=== PATIENT | male | born 1975 | race Caucasian/White ===

== ENCOUNTER 2017-02-10 14:53 | Inpatient (IN) | payer OTHER ==
[2017-02-10 19:42] VITALS: BMI 37.0
--- NOTE | 2017-02-10 20:16 | HP ---
CIWA Score - CIWA Score Nausea/Vomitin Muscle Tremors: 4-Moderate,w/Arms Extend Anxiety: 4-Mod. Anxious/Guarded Agitation: 5 Paroxysmal Sweats: 3 Orientation: 0-Oriented Tacttile Disturbances: 0-None Auditory Disturbances: 0-None Visual Disturbances: 0-None Headache: 0-None Present CIWA-Ar Total Score: 19 Admission ROS BHS - HPI Chief Complaint: C/O WITHDRAWAL SX'S. SEEKING DETOX TXMENT. Allergies/Adverse Reactions: Allergies Allergy/AdvReac Type Severity Reaction Status Date / Time No Known Allergies Allergy Verified 02/10/17 20:10 History of Present Illness: Y.O. MALE WITH POLYSUBSTANCE ABUSE HERE ADMITTED FOR DETOX TXMENT FROM ALCOHOL AND BENZO'S. CLIENT IS PRESENTLY ON MMTP 150 MG DAILY. REPORTS LDM TODAY PROGRAM [facility] . REPORTS LONGEST CLEAN TIME WHILE ON METHADONE. RELPASED 13 YEARS AGO. Exam Limitations: Physical Impairment (L EYE BLINDNESS) - Ebola screening Have you traveled outside of the country in the last 21 days: No Have you had contact with anyone from an Ebola affected area: No Have you been sick,other than usual withdrawal symptoms: No Do you have a fever: No - Review of Systems Constitutional: Chills, Loss of Appetite, Malaise, Night Sweats, Changes in sleep EENT: reports: Nose Congestion Respiratory: reports: Other (ASTHMA/COPD) Cardiac: reports: No Symptoms Reported GI: reports: No Symptoms Reported : reports: No Symptoms Reported Musculoskeletal: reports: Joint Pain Integumentary: reports: Sweating Endocrine: reports: No Symptoms Reported Hematology: reports: No Symptoms Reported Psychiatric: reports: Anxious Other Systems: Reviewed and Negative Patient History - Patient Medical History Hx Anemia: No Hx Asthma: Yes Hx Chronic Obstructive Pulmonary Disease (COPD): Yes Hx Cancer: No Hx Cardiac Disorders: No Hx Congestive Heart Failure: No Hx Hypertension: No Hx Hypercholesterolemia: No Hx Pacemaker: No HX Cerebrovascular Accident: No Hx Seizures: No Hx Dementia: No Hx Diabetes: No Hx Gastrointestinal Disorders: No Hx Liver Disease: No Hx Genitourinary Disorders: No Hx Sexually Transmitted Disorders: No Hx Renal Disease (ESRD): No Hx Thyroid Disease: No Hx Human Immunodeficiency Virus (HIV): No Hx Hepatitis C: No Hx Depression: Yes Hx Suicide Attempt: No Hx Bipolar Disorder: No Hx Schizophrenia: No Other Medical History: ANXIETY - Patient Surgical History Past Surgical History: Yes Hx Orthopedic Surgery: Yes (CLUB FEET REPAIR 12 SX TO BLE) Anesthesia Reaction: No - PPD History Previous Implant?: Yes Documented Results: Negative w/o proof Implanted On Prior R Admission?: No PPD to be Administered?: Yes - Smoking Cessation Smoking history: Current every day smoker Have you smoked in the past 12 months: Yes Aproximately how many cigarettes per day: 20 Hx Chewing Tobacco Use: No Initiated information on smoking cessation: Yes 'Breaking Loose' booklet given: 02/10/17 - Substance & Tx. History Hx Alcohol Use: Yes Hx Substance Use: Yes Substance Use Type: Cocaine, Heroin, Tranquilizers Hx Substance Use Treatment: Yes ([facility]) - Substances Abused XANAX Route: Oral Frequency: 3-6 times per week Amount used: 16 MG Age of first use: 18 Date of Last Use: 02/09/17 KLONOPIN Route: Oral Frequency: 3-6 times per week Amount used: 8MG Age of first use: 18 Date of Last Use: 02/09/17 COCAINE Route: Smoking Frequency: Daily Amount used: 1GM Age of first use: 14 Date of Last Use: 02/09/17 HEROIN Route: Injection Frequency: Daily Amount used: 10 BAGS Age of first use: 12 Date of Last Use: 02/09/17 MALT LIQUOR Route: Oral Frequency: Daily Amount used: 2-24 OZ Age of first use: 18 Date of Last Use: 02/09/17 Family Disease History - Family Disease History Family Disease History: Other: Mother ( MVA), Brother (DRUG ABUSE) Admission Physical Exam [facility] - Vital Signs Vital Signs: Vital Signs - 24 hr 02/10/17 19:38 Temperature 97.3 F L Pulse Rate 64 Respiratory 18 Rate Blood Pressure 112/75 - Physical General Appearance: Yes: Appropriately Dressed, Mild Distress, Sweating, Anxious HEENTM: Yes: Normocephalic, Pharynx Normal, Rhinorrhea, Other (L EYE BLINDNESS AND SCARRING) Respiratory: Yes: Chest Non-Tender, Lungs Clear, Normal Breath Sounds, No Respiratory Distress, No Accessory Muscle Use Neck: Yes: No masses,lesions,Nodules, Supple, Trachea in good position Breast: Yes: Breast Exam Deferred Cardiology: Yes: Regular Rhythm, Regular Rate, S1, S2 Abdominal: Yes: Non Tender, Soft, Protuberent Genitourinary: Yes: Within Normal Limits Back: Yes: Normal Inspection Musculoskeletal: Yes: Joint Stiffness Extremities: Yes: Normal Capillary Refill, Non-Tender, Other (BLE SX SCARS) Neurological: Yes: instantizer operator II-XII NML intact, Fully Oriented, Alert, Motor Strength 5/5 Integumentary: Yes: Cold, Clammy, Track Orr Lymphatic: Yes: Within Normal Limits - Diagnostic (1) Methadone maintenance therapy patient Current Visit: Yes Status: Chronic (2) Alcohol dependence with uncomplicated withdrawal Current Visit: Yes Status: Chronic (3) Opioid dependence with withdrawal Current Visit: Yes Status: Chronic (4) Sedative, hypnotic or anxiolytic dependence with withdrawal, uncomplicated Current Visit: Yes Status: Chronic (5) Cocaine dependence, uncomplicated Current Visit: Yes Status: Chronic (6) Asthma Current Visit: Yes Status: Chronic Qualifiers: Asthma severity: mild intermittent (7) COPD (chronic obstructive pulmonary disease) Current Visit: Yes Status: Chronic Qualifiers: COPD type: COPD with acute exacerbation Qualified Code(s): J44.1 - Chronic obstructive pulmonary disease with (acute) exacerbation (8) Nicotine dependence Current Visit: Yes Status: Chronic Qualifiers: Nicotine product type: cigarettes Substance use status: uncomplicated Qualified Code(s): F17.210 - Nicotine dependence, cigarettes, uncomplicated Cleared for Admission BHS - Detox or Rehab [facility] Level of Care: Medically Managed Detox Regimen/Protocol: Valium [facility] Breath Alcohol Content Breath Alcohol Content: 0 Urine Drug Screen - Results Urine Drug Screen Results: ALEX-Cocaine, OPI-Opiates, BZO-Benzodiazepines, MTD- Methadone
[2017-02-10] MEDS ORDERED: LOPERAMIDE HCL 2 MG CAPSULE PO PRN (20:31)
[2017-02-10] MEDS ORDERED: diazePAM 5 MG TABLET PO ONE (20:31)
[2017-02-10] MEDS ORDERED: MENTHOL/PHENOL 1 EACH UD MM PRN (20:31)
[2017-02-10] MEDS ORDERED: guaiFENesin/D-METHORPHAN HB 10 ML UNIT-DOSE CUPS PO PRN (20:31)
[2017-02-10] MEDS ORDERED: P-EPHED 60MG/TRIPROLIDI 2.5MG TABLET PO PRN (20:31)
[2017-02-10] MEDS ORDERED: MAGNESIUM CITRATE 300 ML BOTTLE PO PRN (20:31)
[2017-02-10] MEDS ORDERED: MAGNESIUM HYDROX 2400MG/30ML ORAL SUSPENSION 30 ML CUP PO PRN (20:31)
[2017-02-10] MEDS ORDERED: MAG HYDROX/AL HYDROX/SIMETH 30 ML UNIT-DOSE CUP PO PRN (20:31)
[2017-02-10] MEDS ORDERED: hydrOXYzine PAMOATE 50 MG CAPSULE (FP) PO PRN (20:31)
[2017-02-10] MEDS ORDERED: IBUPROFEN 400 MG TABLET (FP) PO PRN (20:31)
[2017-02-10] MEDS ORDERED: ALBUTEROL SO4 2.5/IPRATROPIUM 0.5 INH SOL 3 ML VIAL.NEB. NEB PRN (20:33)
[2017-02-10] MEDS: THIAMINE HCL 100 MG TABLET (FP) PO SCH (22:36)
[2017-02-10] MEDS: diphenhydrAMINE HCL 50 MG CAPSULE PO PRN (22:37)
[2017-02-10] MEDS: diazePAM 5 MG TABLET PO SCH (22:40)
[2017-02-10] MEDS: NICOTINE 21 MG/24 HOURS TOPICAL PATCH TD SCH (22:40)
[2017-02-11] MEDS: diazePAM 5 MG TABLET PO SCH ×3 (05:34→22:03)
[2017-02-11] MEDS ORDERED: METHADONE HCL 10 MG TABLET PO SCH (07:30)
[2017-02-11] MEDS ORDERED: METHADONE HCL 10 MG TABLET ONE (08:30)
[2017-02-11] MEDS ORDERED: METHADONE HCL 40 MG DISPERSABLE TABLET ONE (08:31)
[2017-02-11] MEDS: METHADONE 120 MG, METHADONE 30 MG PO SCH (09:03)
[2017-02-11] MEDS: diazePAM 5 MG TABLET PO PRN ×2 (09:04→19:53)
[2017-02-11] MEDS: NICOTINE 21 MG/24 HOURS TOPICAL PATCH TD SCH (09:04)
[2017-02-11] MEDS: PRENATAL VITAMINS W/ FOLIC ACID TABLET (FP) PO SCH (09:04)
--- NOTE | 2017-02-11 09:39 | PN ---
S CIWA - CIWA Score Nausea/Vomitin-Mild Nausea/No Vomiting Muscle Tremors: 4-Moderate,w/Arms Extend Anxiety: 4-Mod. Anxious/Guarded Agitation: 3 Paroxysmal Sweats: 3 Orientation: 0-Oriented Tacttile Disturbances: 0-None Auditory Disturbances: 0-None Visual Disturbances: 0-None Headache: 0-None Present CIWA-Ar Total Score: 15 BHS Progress Note (SOAP) Subjective: Anxiety,tremors,sweating,interrupted sleep,restless,diarrhea. Objective: 02/11/17 09:38 Vital Signs - 8 hr 02/11/17 02/11/17 02/11/17 03:23 06:06 09:30 Temperature 98.0 F 98.1 F Pulse Rate 67 96 H Respiratory 18 18 18 Rate Blood Pressure 131/85 127/83 Assessment: 02/11/17 09:38 Withdrawal sx. Plan: Continue detox
[2017-02-11 09:59] LABS: MCH 28.3 pg (25.7-33.7); MCHC 33.8 g/dl (32.0-35.9); MEAN CELL VOLUME 83.7 fl (80-96); MEAN PLT VOLUME 7.1 fl (7.5-11.1); PLATELET COUNT 192 K/MM3 (134-434); WHITE BLOOD COUNT 5.6 K/mm3 (4.0-10.0)
[2017-02-11 10:08] LABS: ALBUMIN 3.1 g/dl (3.4-5.0); ANION GAP 9 (8-16); CALCIUM 8.5 mg/dL (8.5-10.1); CO2 29 mmol/L (21-32); GLUCOSE,RANDOM 106 mg/dL (74-106)
[2017-02-11 10:13] LABS: ALK PHOS 84 U/L (45-117); BILIRUBIN,TOTAL 0.2 mg/dL (0.2-1.0); COCKROFT - GAULT 219.11; CREATININE 0.7 mg/dL (0.7-1.3); SGOT/AST 22 U/L (15-37); SGPT/ALT 35 U/L (12-78); TOT PROT 6.5 g/dl (6.4-8.2)
--- NOTE | 2017-02-11 13:48 | CONSULT ---
[facility] Psychiatric Consult - Data Date of interview: 02/11/17 Admission source: [facility] Identifying data: First admission to [facility] for this 41 y/o male seeking detox treatment for heroin,cocaine,xanax and alcohol dependence.Patient is single,a father of one,homeless,unemployed and supported on " nothing ". Substance Abuse History: - Smoking Cessation. Smoking history: Current every day smoker. Have you smoked in the past 12 months: Yes. Aproximately how many cigarettes per day: 20. Hx Chewing Tobacco Use: No. Initiated information on smoking cessation: Yes. 'Breaking Loose' booklet given: 02/10/17. - Substance & Tx. History. Hx Alcohol Use: Yes. Hx Substance Use: Yes. Substance Use Type : Cocaine, Heroin, Tranquilizers. Hx Substance Use Treatment: Yes ([facility]) . - Substances Abused. XANAX. Route: Oral. Frequency: 3-6 times per week. Amount used: 16 MG. Age of first use: 18. Date of Last Use: 02/09/17. KLONOPIN. Route: Oral. Frequency: 3-6 times per week. Amount used: 8MG. Age of first use: 18. Date of Last Use: 02/09/17. COCAINE. Route: Smoking. Frequency: Daily. Amount used: 1GM. Age of first use: 14. Date of Last Use: 02/09/17. HEROIN. Route: Injection. Frequency: Daily. Amount used: 10 BAGS. Age of first use: 12. Date of Last Use: 02/09/17. MALT LIQUOR. Route: Oral. Frequency: Daily. Amount used: 2-24 OZ. Age of first use: 18. Date of Last Use: 02/09/17. Confirmed by patient. Medical History: Bronchial asthma and COPD. Psychiatric History: No history of psychiatric hospitalizations.Brief treatment, three years ago,with bupropion 100 mg/day.Stopped seeing a private psychiatrist three years ago.Diagnosed with MDD and Anxiety Disorder.Mr Moseley denies history of suicide attempts.Currently on methadone maintenance (150 mg/day) at the [facility] in [facility]. Physical/Sexual Abuse/Trauma History: No history of sexual abuse. Additional Comment: Urine Drug Screen Results: ALEX-Cocaine, OPI-Opiates, BZO- Benzodiazepines, MTD-Methadone.Noted. Mental Status Exam - Mental Status Exam Alert and Oriented to: Time, Place, Person Cognitive Function: Good Patient Appearance: Well Groomed (tattoos all over neck,torso and forearms) Mood: Hopeful, Euthymic Affect: Appropriate, Normal Range Patient Behavior: Fatigued, Cooperative Speech Pattern: Clear Voice Loudness: Normal Thought Process: Goal Oriented Thought Disorder: Not Present Hallucinations: Denies Suicidal Ideation: Denies Homicidal Ideation: Denies Insight/Judgement: Poor Sleep: Fair Appetite: Good Muscle strength/Tone: Normal Gait/Station: Normal Psychiatric Findings - Problem List ([place] 1, 2,3) (1) Alcohol dependence with uncomplicated withdrawal Current Visit: Yes Status: Acute (2) Cocaine dependence, uncomplicated Current Visit: Yes Status: Acute (3) Nicotine dependence Current Visit: Yes Status: Acute Qualifiers: Nicotine product type: cigarettes Substance use status: uncomplicated Qualified Code(s): F17.210 - Nicotine dependence, cigarettes, uncomplicated (4) Opioid dependence with withdrawal Current Visit: Yes Status: Acute (5) Sedative, hypnotic or anxiolytic dependence with withdrawal, uncomplicated Current Visit: Yes Status: Acute (6) Opioid dependence on agonist therapy Current Visit: Yes Status: Acute (7) Substance induced mood disorder Current Visit: Yes Status: Acute (8) Anxiety disorder Current Visit: Yes Status: Acute (9) Asthma Current Visit: Yes Status: Chronic Qualifiers: Asthma severity: mild intermittent (10) COPD (chronic obstructive pulmonary disease) Current Visit: Yes Status: Chronic Qualifiers: COPD type: COPD with acute exacerbation Qualified Code(s): J44.1 - Chronic obstructive pulmonary disease with (acute) exacerbation - Initial Treatment Plan Initial Treatment Plan: Psychoeducation.Detoxification.medication : wellbutrin 100 mg po daily.Patient made aware of potential for seizures.He agrees with this careplan.Observation.
[2017-02-11 13:53] LABS: URINE APPEARANCE CLEAR; URINE BILIRUBIN NEGATIVE (NEGATIVE); URINE COLOR LTYELLOW; URINE GLUCOSE (UA) NEGATIVE (NEGATIVE); URINE KETONE NEGATIVE (NEGATIVE); URINE NITRITE NEGATIVE (NEGATIVE); URINE PROTEIN NEGATIVE (NEGATIVE); URINE UROBILINOGEN NEGATIVE E.U./dl (0.2-1.0)
[2017-02-11 14:00] LABS: URINE BLOOD 1+ (NEGATIVE); URINE LEUK ESTERASE TRACE (NEGATIVE)
[2017-02-11 14:05] LABS: CALCIUM OXALATE CRYSTALS MODERATE /hpf (NONE SEEN); URINE MUCUS RARE; URINE RBC 3 /hpf (0-3); URINE WBC <1 /hpf (3-5)
[2017-02-11] MEDS: THIAMINE HCL 100 MG TABLET (FP) PO SCH (22:03)
[2017-02-11] MEDS: diphenhydrAMINE HCL 50 MG CAPSULE PO PRN (22:03)
--- NOTE | 2017-02-11 23:07 | EKG ---
Test Reason : Blood Pressure : / mmHG Vent. Rate : 059 BPM Atrial Rate : 059 BPM P-R Int : 140 ms QRS Dur : 106 ms QT Int : 434 ms P-R-T Axes : 016 052 051 degrees QTc Int : 429 ms SINUS BRADYCARDIA INCOMPLETE RIGHT BUNDLE BRANCH BLOCK BORDERLINE ECG NO PREVIOUS ECGS AVAILABLE Confirmed by CASSANDRA PANDYA MD ([id number]) on 02/11/2017 11:07:02 PM Referred By: Simon Macedo Confirmed By:CASSANDRA PANDYA MD
[2017-02-12] MEDS ORDERED: METHADONE HCL 10 MG TABLET ONE (04:42)
[2017-02-12] MEDS ORDERED: METHADONE HCL 40 MG DISPERSABLE TABLET ONE (04:43)
[2017-02-12] MEDS: METHADONE 120 MG, METHADONE 30 MG PO SCH (05:40)
[2017-02-12] MEDS: diazePAM 5 MG TABLET PO PRN ×3 (05:40→18:27)
[2017-02-12] MEDS: PRENATAL VITAMINS W/ FOLIC ACID TABLET (FP) PO SCH (10:04)
[2017-02-12] MEDS: diazePAM 5 MG TABLET PO SCH ×2 (10:04→22:51)
[2017-02-12] MEDS: buPROPion HCL 100 MG TABLET PO SCH (10:04)
[2017-02-12] MEDS: NICOTINE 21 MG/24 HOURS TOPICAL PATCH TD SCH (10:05)
[2017-02-12] MEDS: ACETAMINOPHEN 325 MG TABLET (FP) PO PRN (10:06)
--- NOTE | 2017-02-12 12:05 | PN ---
S CIWA - CIWA Score Nausea/Vomitin-No Nausea/No Vomiting Muscle Tremors: 3 Anxiety: 4-Mod. Anxious/Guarded Agitation: 3 Paroxysmal Sweats: 2 Orientation: 0-Oriented Tacttile Disturbances: 0-None Auditory Disturbances: 0-None Visual Disturbances: 0-None Headache: 0-None Present CIWA-Ar Total Score: 12 BHS Progress Note (SOAP) Subjective: Anxiety,tremors,sweating,interrupted sleep,restless. Objective: 02/12/17 12:02 Vital Signs - 8 hr 02/12/17 02/12/17 06:28 09:07 Temperature 96.8 F L 96.8 F L Pulse Rate 59 L 57 L Respiratory 16 18 Rate Blood Pressure 117/73 124/75 Laboratory Tests 02/10/17 02/11/17 02/11/17 07:00 07:00 07:00 WBC 5.6 RBC 4.65 Hgb 13.1 Hct 38.9 MCV 83.7 MCHC 33.8 RDW 14.0 Plt Count 192 MPV 7.1 L Sodium 143 Potassium 3.5 Chloride 105 Carbon Dioxide 29 Anion Gap 9 BUN 13 Creatinine 0.7 Creat Clearance w eGFR > 60 Random Glucose 106 Calcium 8.5 Total Bilirubin 0.2 AST 22 ALT 35 Alkaline Phosphatase 84 Total Protein 6.5 Albumin 3.1 L Urine Color Urine Appearance Urine pH Ur Specific [place] Urine Protein Urine Glucose (UA) Urine Ketones Urine Blood Urine Nitrite Urine Bilirubin Urine Urobilinogen Ur Leukocyte Esterase Urine RBC Urine WBC Calcium Oxalate Crystal Urine Mucus RPR Titer Hepatitis C Antibody >11.0 H 02/11/17 02/11/17 07:00 10:05 WBC RBC Hgb Hct MCV MCHC RDW Plt Count MPV Sodium Potassium Chloride Carbon Dioxide Anion Gap BUN Creatinine Creat Clearance w eGFR Random Glucose Calcium Total Bilirubin AST ALT Alkaline Phosphatase Total Protein Albumin Urine Color Ltyellow Urine Appearance Clear Urine pH 6.0 Ur Specific [place] 1.019 Urine Protein Negative Urine Glucose (UA) Negative Urine Ketones Negative Urine Blood 1+ H Urine Nitrite Negative Urine Bilirubin Negative Urine Urobilinogen Negative Ur Leukocyte Esterase Trace H Urine RBC 3 Urine WBC <1 Calcium Oxalate Crystal Moderate Urine Mucus Rare RPR Titer Nonreactive Hepatitis C Antibody labs noted Assessment: 02/12/17 12:04 Withdrawal sx. Plan: Continue detox
[2017-02-12] MEDS: NICOTINE POLACRILEX 2 MG GUM BC PRN ×2 (14:15→18:28)
[2017-02-12] MEDS: THIAMINE HCL 100 MG TABLET (FP) PO SCH (22:00)
[2017-02-12] MEDS: diphenhydrAMINE HCL 50 MG CAPSULE PO PRN (22:00)
[2017-02-13] MEDS ORDERED: METHADONE HCL 10 MG TABLET ONE (03:33)
[2017-02-13] MEDS ORDERED: METHADONE HCL 40 MG DISPERSABLE TABLET ONE (03:33)
[2017-02-13] MEDS: diazePAM 5 MG TABLET PO PRN ×3 (05:44→18:29)
[2017-02-13] MEDS: METHADONE 120 MG, METHADONE 30 MG PO SCH (05:44)
[2017-02-13] MEDS: PRENATAL VITAMINS W/ FOLIC ACID TABLET (FP) PO SCH (10:06)
[2017-02-13] MEDS: buPROPion HCL 100 MG TABLET PO SCH (10:06)
[2017-02-13] MEDS: diazePAM 5 MG TABLET PO SCH ×2 (10:06→22:10)
[2017-02-13] MEDS: ACETAMINOPHEN 325 MG TABLET (FP) PO PRN (10:06)
[2017-02-13] MEDS: NICOTINE 21 MG/24 HOURS TOPICAL PATCH TD SCH (10:06)
[2017-02-13] MEDS ORDERED: IBUPROFEN 400 MG TABLET (FP) PO ONE (11:07)
--- NOTE | 2017-02-13 11:10 | PN ---
BHS Progress Note (SOAP) Subjective: Sweating,interrupted sleep,restless Objective: 02/13/17 11:08 Vital Signs - 8 hr 02/13/17 02/13/17 02/13/17 03:18 06:14 09:20 Temperature 97.4 F L 98.0 F Pulse Rate 57 L 59 L Respiratory 18 18 18 Rate Blood Pressure 130/82 119/73 Laboratory Last Values WBC 5.6 K/mm3 (4.0-10.0) 02/11/17 07:00 RBC 4.65 M/mm3 (4.00-5.60) 02/11/17 07:00 Hgb 13.1 GM/dL (11.7-16.9) 02/11/17 07:00 Hct 38.9 % (35.4-49) 02/11/17 07:00 MCV 83.7 fl (80-96) 02/11/17 07:00 MCHC 33.8 g/dl (32.0-35.9) 02/11/17 07:00 RDW 14.0 % (11.9-15.9) 02/11/17 07:00 Plt Count 192 K/MM3 (134-434) 02/11/17 07:00 MPV 7.1 fl (7.5-11.1) L 02/11/17 07:00 Sodium 143 mmol/L (136-145) 02/11/17 07:00 Potassium 3.5 mmol/L (3.5-5.1) 02/11/17 07:00 Chloride 105 mmol/L (98-107) 02/11/17 07:00 Carbon Dioxide 29 mmol/L (21-32) 02/11/17 07:00 Anion Gap 9 (8-16) 02/11/17 07:00 BUN 13 mg/dL (7-18) 02/11/17 07:00 Creatinine 0.7 mg/dL (0.7-1.3) 02/11/17 07:00 Creat Clearance w eGFR > 60 (>60) 02/11/17 07:00 Random Glucose 106 mg/dL (74-106) 02/11/17 07:00 Calcium 8.5 mg/dL (8.5-10.1) 02/11/17 07:00 Total Bilirubin 0.2 mg/dL (0.2-1.0) 02/11/17 07:00 AST 22 U/L (15-37) 02/11/17 07:00 ALT 35 U/L (12-78) 02/11/17 07:00 Alkaline Phosphatase 84 U/L (45-117) 02/11/17 07:00 Total Protein 6.5 g/dl (6.4-8.2) 02/11/17 07:00 Albumin 3.1 g/dl (3.4-5.0) L 02/11/17 07:00 Urine Color Ltyellow 02/11/17 10:05 Urine Appearance Clear 02/11/17 10:05 Urine pH 6.0 (5.0-8.0) 02/11/17 10:05 Ur Specific [place] 1.019 (1.001-1.035) 02/11/17 10:05 Urine Protein Negative (NEGATIVE) 02/11/17 10:05 Urine Glucose (UA) Negative (NEGATIVE) 02/11/17 10:05 Urine Ketones Negative (NEGATIVE) 02/11/17 10:05 Urine Blood 1+ (NEGATIVE) H 02/11/17 10:05 Urine Nitrite Negative (NEGATIVE) 02/11/17 10:05 Urine Bilirubin Negative (NEGATIVE) 02/11/17 10:05 Urine Urobilinogen Negative E.U./dl (0.2-1.0) 02/11/17 10:05 Ur Leukocyte Esterase Trace (NEGATIVE) H 02/11/17 10:05 Urine RBC 3 /hpf (0-3) 02/11/17 10:05 Urine WBC <1 /hpf (3-5) 02/11/17 10:05 Calcium Oxalate Crystal Moderate /hpf (NONE SEEN) 02/11/17 10:05 Urine Mucus Rare 02/11/17 10:05 RPR Titer Nonreactive (NONREACTIVE) 02/11/17 07:00 Hepatitis C Antibody >11.0 s/co ratio (0.0-0.9) H 02/10/17 07:00 labs noted,hep c result discussed with pt. Assessment: 02/13/17 11:10 Withdrawal sx. Plan: Continue detox
[2017-02-13] MEDS: NICOTINE POLACRILEX 2 MG GUM BC PRN ×2 (12:41→18:32)
[2017-02-13] MEDS: IBUPROFEN 400 MG TABLET (FP) PO PRN (18:28)
[2017-02-13] MEDS: THIAMINE HCL 100 MG TABLET (FP) PO SCH (22:09)
[2017-02-13] MEDS: diphenhydrAMINE HCL 50 MG CAPSULE PO PRN (22:10)
[2017-02-14] MEDS ORDERED: METHADONE HCL 10 MG TABLET ONE (03:48)
[2017-02-14] MEDS ORDERED: METHADONE HCL 40 MG DISPERSABLE TABLET ONE (03:49)
[2017-02-14] MEDS: METHADONE 120 MG, METHADONE 30 MG PO SCH (05:27)
[2017-02-14] MEDS ORDERED: diazePAM 5 MG TABLET PO SCH (10:00)
[2017-02-14] MEDS: PRENATAL VITAMINS W/ FOLIC ACID TABLET (FP) PO SCH (10:07)
[2017-02-14] MEDS: buPROPion HCL 100 MG TABLET PO SCH (10:08)
[2017-02-14] MEDS: NICOTINE 21 MG/24 HOURS TOPICAL PATCH TD SCH (10:08)
[2017-02-14] MEDS: IBUPROFEN 400 MG TABLET (FP) PO PRN (10:10)
[2017-02-14 10:27] VITALS: BP 117/78; PULSE 57; TEMP 97.4
--- NOTE | 2017-02-14 11:14 | DS ---
[facility] Detox Discharge Summary Admission Date: 02/10/17 Discharge Date: 02/14/17 - History Present History: Alcohol Dependence, Cocaine Dependence, MMTP Additional Comments: DETOX COMPLETED. ALERT O X 3. NAD. Pertinent Past History: ASTHMA COPD - Physical Exam Results Vital Signs: Vital Signs Temperature 97.4 F L 02/14/17 10:27 Pulse Rate 57 L 02/14/17 10:27 Respiratory Rate 18 02/14/17 10:27 Blood Pressure 117/78 02/14/17 10:27 O2 Sat by Pulse Oximetry (%) Pertinent Admission Physical Exam Findings: WITHDRAWAL SX - Treatment Hospital Course: Detox Protocol Followed, Detoxed Safely, Responded well, Discharged Condition Good, Rehab Referral Accepted Patient has Accepted a Rehab Referral to: [facility] - Medication Discharge Medications: Ambulatory Orders Albuterol Sulfate Inhaler - [Ventolin Hfa Inhaler -] 1 - 2 inh PO Q4H 02/10/17 Methadone [Dolophine -] 150 mg PO DAILY 02/10/17 - Diagnosis (1) Alcohol dependence with uncomplicated withdrawal Current Visit: Yes Status: Acute (2) Cocaine dependence, uncomplicated Current Visit: Yes Status: Acute (3) Nicotine dependence Current Visit: Yes Status: Acute Qualifiers: Nicotine product type: cigarettes Substance use status: uncomplicated Qualified Code(s): F17.210 - Nicotine dependence, cigarettes, uncomplicated (4) Sedative, hypnotic or anxiolytic dependence with withdrawal, uncomplicated Current Visit: Yes Status: Acute (5) Asthma Current Visit: Yes Status: Chronic Qualifiers: Asthma severity: mild intermittent (6) COPD (chronic obstructive pulmonary disease) Current Visit: Yes Status: Chronic Qualifiers: COPD type: COPD with acute exacerbation Qualified Code(s): J44.1 - Chronic obstructive pulmonary disease with (acute) exacerbation (7) Methadone maintenance therapy patient Current Visit: Yes Status: Chronic - AMA Did Patient Leave Against Medical Advice: No
== END 2017-02-14 12:20 | disposition other institution (70) | DRG 773 ==
LOC: YASAS 14:53 → Y3N 21:16
PROVIDERS: ADMIT Internal Medicine; ATTEND Internal Medicine
PROC: HZ2ZZZZ Detoxification Services for Substance Abuse Treatment (ICD-10-PCS; principal; 2017-02-14)
DX: F11.23 Opioid dependence with withdrawal (principal); F13.230 Sedative, hypnotic or anxiolytic dependence with withdrawal, uncomplicated; F10.230 Alcohol dependence with withdrawal, uncomplicated; F17.210 Nicotine dependence, cigarettes, uncomplicated; J45.909 Unspecified asthma, uncomplicated; J44.9 Chronic obstructive pulmonary disease, unspecified; F41.9 Anxiety disorder, unspecified; Z59.0 Homelessness
CPT/HCPCS: 36415; 80053; 81003; 81015; 85027; 86593; 87522; 93005; 93010

== ENCOUNTER 2017-02-14 12:27 | Inpatient (IN) | payer OTHER ==
[2017-02-14] MEDS ORDERED: P-EPHED 60MG/TRIPROLIDI 2.5MG TABLET PO PRN (13:35)
[2017-02-14] MEDS ORDERED: guaiFENesin/D-METHORPHAN HB 10 ML UNIT-DOSE CUPS PO PRN (13:35)
[2017-02-14] MEDS ORDERED: hydrOXYzine PAMOATE 50 MG CAPSULE (FP) PO PRN (13:35)
[2017-02-14] MEDS ORDERED: MENTHOL/PHENOL 1 EACH UD MM PRN (13:35)
[2017-02-14] MEDS ORDERED: MAG HYDROX/AL HYDROX/SIMETH 30 ML UNIT-DOSE CUP PO PRN (13:35)
[2017-02-14] MEDS ORDERED: LOPERAMIDE HCL 2 MG CAPSULE PO PRN (13:35)
[2017-02-14] MEDS ORDERED: ACETAMINOPHEN 325 MG TABLET (FP) PO PRN (13:35)
[2017-02-14] MEDS ORDERED: MAGNESIUM HYDROX 2400MG/30ML ORAL SUSPENSION 30 ML CUP PO PRN (13:35)
[2017-02-14] MEDS ORDERED: MAGNESIUM CITRATE 300 ML BOTTLE PO PRN (13:35)
--- NOTE | 2017-02-14 13:39 | HP ---
[facility] Re[facility] Assess/Revision - Admission History Ad[facility]hab [facility] Date of Admission to Rehab: 02/14/17 - Findings Detox History & Physical reviewed: Yes Concur with findings: Yes Comments/Additional Findings: FOR REHAB PROTOCOL
--- NOTE | 2017-02-14 14:20 | HP ---
Psychiatrist Admission - Data Date of interview: 02/14/17 Admission source: 3N Identifying data: This is the first 5N inpatient rehabilitation admsision for this 41 year old male who is single,a father of one, homeless, unemployed. 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 p.o. daily, smokes cigarettes 1PPD. Psychiatric History: Patient reports history of anxiety and depression, was under the care of private psychiatrist 3 years ago, stopped seeing him, reports was treated with wellbutrin 100 mg daily, seen by Joaquin Eugene and restarted his medication. Physical/Sexual Abuse/Trauma History: Denies history of sexual, physical and verbal buse. Allergies/Adverse Reactions: Allergies Allergy/AdvReac Type Severity Reaction Status Date / Time No Known Allergies Allergy Verified 02/14/17 13:39 Date of last physical exam: 02/10/17 Concur with the findings of this exam: Yes - Substance Abuse/Tx History Hx Alcohol Use: Yes Hx Substance Use: Yes Substance Use Type: Alcohol (daily use beer), Cocaine (daily use), Heroin (10 bags injecting), Tranquilizers (xanax up to 6 mg , klonopin up to 4 mg daily) Hx Substance Use Treatment: Yes - Admission Criteria Previous failed treatment: Yes Poor recovery environment: Yes Comorbidities: Yes Lacks judgement: Yes Mental Status Exam - Mental Status Exam Alert and Oriented to: Time, Place, Person Cognitive Function: Grossly Intact Patient Appearance: Well Groomed Mood: Sad, Anxious Affect: Appropriate, Mood Congruent Patient Behavior: Appropriate, Cooperative Speech Pattern: Clear, Appropriate Voice Loudness: Normal Thought Process: Intact, Goal Oriented Thought Disorder: Not Present Hallucinations: Denies Suicidal Ideation: Denies Homicidal Ideation: Denies Insight/Judgement: Fair Sleep: Fair Appetite: Fair Muscle strength/Tone: Normal Gait/Station: Normal Psychiatric Findings - Problem List ([place] 1, 2,3) (1) Cocaine dependence, uncomplicated Current Visit: No Status: Acute (2) Nicotine dependence Current Visit: No Status: Acute Qualifiers: Nicotine product type: cigarettes Substance use status: uncomplicated Qualified Code(s): F17.210 - Nicotine dependence, cigarettes, uncomplicated (3) Opioid dependence on agonist therapy Current Visit: No Status: Acute (4) TUNG (generalized anxiety disorder) Current Visit: Yes Status: Acute (5) Alcohol dependence Current Visit: Yes Status: Acute (6) Sedative hypnotic or anxiolytic dependence Current Visit: Yes Status: Acute (7) Psychoactive substance-induced mood disorder Current Visit: Yes Status: Acute - Initial Treatment Plan Initial Treatment Plan: to continue Wellbutrin 100 mg po am start Buspar 5 mg po tid(side-effects benefits discussed), contineu to monitor progress.
[2017-02-14] MEDS: NICOTINE 21 MG/24 HOURS TOPICAL PATCH TD SCH (15:15)
[2017-02-14] MEDS: NICOTINE POLACRILEX 2 MG GUM BUC PRN (18:07)
[2017-02-14] MEDS: IBUPROFEN 400 MG TABLET (FP) PO PRN (21:56)
[2017-02-14] MEDS: THIAMINE HCL 100 MG TABLET (FP) PO SCH (21:56)
[2017-02-14] MEDS: busPIRone HCL 5 MG TABLET PO SCH (21:56)
[2017-02-15] MEDS ORDERED: METHADONE HCL 10 MG TABLET ONE (04:27)
[2017-02-15] MEDS ORDERED: METHADONE HCL 40 MG DISPERSABLE TABLET ONE (04:28)
[2017-02-15] MEDS ORDERED: METHADONE HCL 40 MG DISPERSABLE TABLET PO SCH (06:00)
[2017-02-15] MEDS: METHADONE 120 MG, METHADONE 30 MG PO SCH (06:30)
[2017-02-15] MEDS: busPIRone HCL 5 MG TABLET PO SCH ×3 (06:30→22:00)
[2017-02-15] MEDS: ALBUTEROL SO4 6.7 GM HFA INHALER IH PRN (08:52)
[2017-02-15] MEDS: NICOTINE 21 MG/24 HOURS TOPICAL PATCH TD SCH (10:40)
[2017-02-15] MEDS: PRENATAL VITAMINS W/ FOLIC ACID TABLET (FP) PO SCH (10:40)
[2017-02-15] MEDS: buPROPion HCL 100 MG TABLET PO SCH (10:40)
[2017-02-15] MEDS: IBUPROFEN 400 MG TABLET (FP) PO PRN ×2 (10:42→22:01)
[2017-02-15] MEDS: NICOTINE POLACRILEX 2 MG GUM BUC PRN (17:33)
[2017-02-15] MEDS: THIAMINE HCL 100 MG TABLET (FP) PO SCH (22:00)
[2017-02-15] MEDS: diphenhydrAMINE HCL 50 MG CAPSULE PO PRN (22:00)
[2017-02-16] MEDS ORDERED: METHADONE HCL 40 MG DISPERSABLE TABLET ONE (03:49)
[2017-02-16] MEDS ORDERED: METHADONE HCL 10 MG TABLET ONE (03:49)
[2017-02-16] MEDS: busPIRone HCL 5 MG TABLET PO SCH ×3 (06:20→21:50)
[2017-02-16] MEDS: METHADONE 120 MG, METHADONE 30 MG PO SCH (06:20)
[2017-02-16] MEDS: NICOTINE POLACRILEX 2 MG GUM BUC PRN ×2 (06:21→13:48)
[2017-02-16] MEDS: PRENATAL VITAMINS W/ FOLIC ACID TABLET (FP) PO SCH (10:42)
[2017-02-16] MEDS: IBUPROFEN 400 MG TABLET (FP) PO PRN (10:42)
[2017-02-16] MEDS: buPROPion HCL 100 MG TABLET PO SCH (10:42)
[2017-02-16] MEDS: NICOTINE 21 MG/24 HOURS TOPICAL PATCH TD SCH (10:43)
[2017-02-16] MEDS: THIAMINE HCL 100 MG TABLET (FP) PO SCH (21:50)
[2017-02-16] MEDS: diphenhydrAMINE HCL 50 MG CAPSULE PO PRN (21:50)
[2017-02-17] MEDS ORDERED: METHADONE HCL 10 MG TABLET ONE (03:26)
[2017-02-17] MEDS ORDERED: METHADONE HCL 40 MG DISPERSABLE TABLET ONE (03:27)
[2017-02-17] MEDS: METHADONE 120 MG, METHADONE 30 MG PO SCH (06:00)
[2017-02-17] MEDS: busPIRone HCL 5 MG TABLET PO SCH ×3 (06:00→21:57)
[2017-02-17] MEDS: IBUPROFEN 400 MG TABLET (FP) PO PRN (10:51)
[2017-02-17] MEDS: NICOTINE 21 MG/24 HOURS TOPICAL PATCH TD SCH (10:52)
[2017-02-17] MEDS: buPROPion HCL 100 MG TABLET PO SCH (10:52)
[2017-02-17] MEDS: PRENATAL VITAMINS W/ FOLIC ACID TABLET (FP) PO SCH (10:52)
[2017-02-17] MEDS: NICOTINE POLACRILEX 2 MG GUM BUC PRN (14:04)
[2017-02-17] MEDS: THIAMINE HCL 100 MG TABLET (FP) PO SCH (21:57)
[2017-02-18] MEDS ORDERED: METHADONE HCL 10 MG TABLET ONE (03:17)
[2017-02-18] MEDS ORDERED: METHADONE HCL 40 MG DISPERSABLE TABLET ONE (03:18)
[2017-02-18] MEDS: busPIRone HCL 5 MG TABLET PO SCH ×3 (06:15→21:56)
[2017-02-18] MEDS: METHADONE 120 MG, METHADONE 30 MG PO SCH (06:15)
[2017-02-18] MEDS: NICOTINE POLACRILEX 2 MG GUM BUC PRN ×2 (08:45→14:14)
[2017-02-18] MEDS: PRENATAL VITAMINS W/ FOLIC ACID TABLET (FP) PO SCH (10:33)
[2017-02-18] MEDS: buPROPion HCL 100 MG TABLET PO SCH (10:33)
[2017-02-18] MEDS: IBUPROFEN 400 MG TABLET (FP) PO PRN ×2 (10:34→21:57)
[2017-02-18] MEDS: NICOTINE 21 MG/24 HOURS TOPICAL PATCH TD SCH (10:34)
[2017-02-18] MEDS: THIAMINE HCL 100 MG TABLET (FP) PO SCH (21:56)
[2017-02-18] MEDS: diphenhydrAMINE HCL 50 MG CAPSULE PO PRN (21:56)
[2017-02-19] MEDS ORDERED: METHADONE HCL 10 MG TABLET ONE (03:30)
[2017-02-19] MEDS ORDERED: METHADONE HCL 40 MG DISPERSABLE TABLET ONE (03:31)
[2017-02-19] MEDS: METHADONE 120 MG, METHADONE 30 MG PO SCH (06:16)
[2017-02-19] MEDS: busPIRone HCL 5 MG TABLET PO SCH ×3 (06:16→22:03)
[2017-02-19] MEDS: NICOTINE POLACRILEX 2 MG GUM BUC PRN (08:24)
[2017-02-19] MEDS: PRENATAL VITAMINS W/ FOLIC ACID TABLET (FP) PO SCH (10:34)
[2017-02-19] MEDS: buPROPion HCL 100 MG TABLET PO SCH (10:34)
[2017-02-19] MEDS: NICOTINE 21 MG/24 HOURS TOPICAL PATCH TD SCH (10:34)
[2017-02-19] MEDS: IBUPROFEN 400 MG TABLET (FP) PO PRN (10:35)
[2017-02-19] MEDS: THIAMINE HCL 100 MG TABLET (FP) PO SCH (22:03)
[2017-02-19] MEDS: diphenhydrAMINE HCL 50 MG CAPSULE PO PRN (22:03)
[2017-02-20] MEDS ORDERED: METHADONE HCL 40 MG DISPERSABLE TABLET ONE (03:29)
[2017-02-20] MEDS ORDERED: METHADONE HCL 10 MG TABLET ONE (03:29)
[2017-02-20] MEDS: METHADONE 120 MG, METHADONE 30 MG PO SCH (06:13)
[2017-02-20] MEDS: busPIRone HCL 5 MG TABLET PO SCH ×3 (06:13→21:44)
[2017-02-20] MEDS: ALBUTEROL SO4 6.7 GM HFA INHALER IH PRN (08:24)
[2017-02-20] MEDS: NICOTINE POLACRILEX 2 MG GUM BUC PRN ×2 (08:25→14:09)
[2017-02-20] MEDS: PRENATAL VITAMINS W/ FOLIC ACID TABLET (FP) PO SCH (10:57)
[2017-02-20] MEDS: IBUPROFEN 400 MG TABLET (FP) PO PRN (10:57)
[2017-02-20] MEDS: NICOTINE 21 MG/24 HOURS TOPICAL PATCH TD SCH (10:57)
[2017-02-20] MEDS: buPROPion HCL 100 MG TABLET PO SCH (10:57)
[2017-02-20] MEDS: THIAMINE HCL 100 MG TABLET (FP) PO SCH (21:44)
[2017-02-20] MEDS: diphenhydrAMINE HCL 50 MG CAPSULE PO PRN (21:44)
[2017-02-21] MEDS ORDERED: METHADONE HCL 40 MG DISPERSABLE TABLET ONE (05:49)
[2017-02-21] MEDS ORDERED: METHADONE HCL 10 MG TABLET ONE (05:49)
[2017-02-21] MEDS: METHADONE 120 MG, METHADONE 30 MG PO SCH (06:02)
[2017-02-21] MEDS: busPIRone HCL 5 MG TABLET PO SCH ×3 (06:03→22:02)
[2017-02-21] MEDS: NICOTINE 21 MG/24 HOURS TOPICAL PATCH TD SCH (10:44)
[2017-02-21] MEDS: IBUPROFEN 400 MG TABLET (FP) PO PRN (10:44)
[2017-02-21] MEDS: PRENATAL VITAMINS W/ FOLIC ACID TABLET (FP) PO SCH (10:44)
[2017-02-21] MEDS: buPROPion HCL 100 MG TABLET PO SCH (10:44)
[2017-02-21] MEDS: NICOTINE POLACRILEX 2 MG GUM BUC PRN (14:20)
[2017-02-21] MEDS: THIAMINE HCL 100 MG TABLET (FP) PO SCH (22:02)
[2017-02-21] MEDS: diphenhydrAMINE HCL 50 MG CAPSULE PO PRN (22:02)
[2017-02-22] MEDS ORDERED: METHADONE HCL 10 MG TABLET ONE (03:24)
[2017-02-22] MEDS ORDERED: METHADONE HCL 40 MG DISPERSABLE TABLET ONE (03:25)
[2017-02-22] MEDS: METHADONE 120 MG, METHADONE 30 MG PO SCH (06:32)
[2017-02-22] MEDS: busPIRone HCL 5 MG TABLET PO SCH ×3 (06:32→21:47)
[2017-02-22] MEDS: PRENATAL VITAMINS W/ FOLIC ACID TABLET (FP) PO SCH (10:51)
[2017-02-22] MEDS: buPROPion HCL 100 MG TABLET PO SCH (10:51)
[2017-02-22] MEDS: NICOTINE 21 MG/24 HOURS TOPICAL PATCH TD SCH (10:51)
[2017-02-22] MEDS: ALBUTEROL SO4 6.7 GM HFA INHALER IH PRN (10:54)
[2017-02-22] MEDS: NICOTINE POLACRILEX 2 MG GUM BUC PRN (14:04)
[2017-02-22] MEDS: THIAMINE HCL 100 MG TABLET (FP) PO SCH (21:47)
[2017-02-22] MEDS: IBUPROFEN 400 MG TABLET (FP) PO PRN (21:48)
[2017-02-22] MEDS: diphenhydrAMINE HCL 50 MG CAPSULE PO PRN (21:48)
[2017-02-23] MEDS ORDERED: METHADONE HCL 10 MG TABLET ONE (03:19)
[2017-02-23] MEDS ORDERED: METHADONE HCL 40 MG DISPERSABLE TABLET ONE (03:20)
[2017-02-23] MEDS: busPIRone HCL 5 MG TABLET PO SCH ×3 (06:21→22:00)
[2017-02-23] MEDS: METHADONE 120 MG, METHADONE 30 MG PO SCH (06:21)
[2017-02-23] MEDS: NICOTINE 21 MG/24 HOURS TOPICAL PATCH TD SCH (10:47)
[2017-02-23] MEDS: buPROPion HCL 100 MG TABLET PO SCH (10:47)
[2017-02-23] MEDS: PRENATAL VITAMINS W/ FOLIC ACID TABLET (FP) PO SCH (10:47)
[2017-02-23] MEDS: NICOTINE POLACRILEX 2 MG GUM BUC PRN (14:10)
[2017-02-23] MEDS: ALBUTEROL SO4 6.7 GM HFA INHALER IH PRN (21:48)
[2017-02-23] MEDS: THIAMINE HCL 100 MG TABLET (FP) PO SCH (21:49)
[2017-02-24] MEDS ORDERED: METHADONE HCL 40 MG DISPERSABLE TABLET ONE (05:04)
[2017-02-24] MEDS ORDERED: METHADONE HCL 10 MG TABLET ONE (05:04)
[2017-02-24] MEDS: busPIRone HCL 5 MG TABLET PO SCH ×3 (06:11→22:14)
[2017-02-24] MEDS: METHADONE 120 MG, METHADONE 30 MG PO SCH (06:11)
[2017-02-24] MEDS: NICOTINE POLACRILEX 2 MG GUM BUC PRN (08:37)
[2017-02-24] MEDS: NICOTINE 21 MG/24 HOURS TOPICAL PATCH TD SCH (11:06)
[2017-02-24] MEDS: buPROPion HCL 100 MG TABLET PO SCH (11:06)
[2017-02-24] MEDS: PRENATAL VITAMINS W/ FOLIC ACID TABLET (FP) PO SCH (11:06)
[2017-02-24] MEDS: ALBUTEROL SO4 6.7 GM HFA INHALER IH PRN (13:51)
[2017-02-24] MEDS: THIAMINE HCL 100 MG TABLET (FP) PO SCH (22:14)
[2017-02-25] MEDS ORDERED: METHADONE HCL 40 MG DISPERSABLE TABLET ONE (03:17)
[2017-02-25] MEDS ORDERED: METHADONE HCL 10 MG TABLET ONE (03:17)
[2017-02-25] MEDS: busPIRone HCL 5 MG TABLET PO SCH ×3 (06:13→21:07)
[2017-02-25] MEDS: METHADONE 120 MG, METHADONE 30 MG PO SCH (06:13)
[2017-02-25] MEDS: IBUPROFEN 400 MG TABLET (FP) PO PRN ×2 (08:25→14:11)
[2017-02-25] MEDS: NICOTINE 21 MG/24 HOURS TOPICAL PATCH TD SCH (10:40)
[2017-02-25] MEDS: buPROPion HCL 100 MG TABLET PO SCH (10:40)
[2017-02-25] MEDS: PRENATAL VITAMINS W/ FOLIC ACID TABLET (FP) PO SCH (10:40)
[2017-02-25] MEDS: ALBUTEROL SO4 6.7 GM HFA INHALER IH PRN (14:12)
[2017-02-25] MEDS: THIAMINE HCL 100 MG TABLET (FP) PO SCH (21:07)
[2017-02-26] MEDS ORDERED: METHADONE HCL 10 MG TABLET ONE (03:30)
[2017-02-26] MEDS ORDERED: METHADONE HCL 40 MG DISPERSABLE TABLET ONE (03:30)
[2017-02-26] MEDS: METHADONE 120 MG, METHADONE 30 MG PO SCH (06:15)
[2017-02-26] MEDS: busPIRone HCL 5 MG TABLET PO SCH (06:16)
[2017-02-26] MEDS: PRENATAL VITAMINS W/ FOLIC ACID TABLET (FP) PO SCH (09:53)
[2017-02-26] MEDS: buPROPion HCL 100 MG TABLET PO SCH (09:53)
[2017-02-26] MEDS: NICOTINE 21 MG/24 HOURS TOPICAL PATCH TD SCH (09:53)
[2017-02-26] MEDS: IBUPROFEN 400 MG TABLET (FP) PO PRN (09:54)
--- NOTE | 2017-02-26 12:14 | PN ---
Psychiatric Progress Note Vital Signs: Vital Signs Period Temp Pulse Resp BP Sys/Moran Pulse Ox Last 24 Hr 98.0 F 64 16-18 122/77 Date of Session: 02/26/17 Chief Complaint:: anxiety HPI: Patient is addressing cocaine, opioid, alcohol, sedative hypnotic dependence comorbid substance induced mood disorder, TUNG. ROS: COPD, Asthma medically managed. Current Medications: Active Medications Generic Name Dose Route Start Last Admin Trade Name Freq PRN Reason Stop Dose Admin Acetaminophen 650 mg 02/14/17 13:35 Tylenol - PO Q4H PRN FEVER OR PAIN Al Hydroxide/Mg Hydroxide 30 ml 02/14/17 13:35 Mylanta Oral Suspension - PO Q6H PRN DYSPEPSIA Albuterol Sulfate 2 puff 02/14/17 13:36 02/25/17 14:12 Ventolin Hfa Inhaler - IH 2 inh Q4H PRN Administration ASTHMA Bupropion HCl 150 mg 02/27/17 10:00 Wellbutrin - PO DAILY RUBY Buspirone HCl 10 mg 02/26/17 11:37 Buspar - PO TID RUBY Diphenhydramine HCl 50 mg 02/14/17 13:35 02/22/17 21:48 Benadryl - PO 50 mg HSMR1 PRN Administration FOR ITCHING Eucalyptus/Menthol/Phenol/Sorbitol 1 each 02/14/17 13:35 Cepastat Lozenge - MM Q4H PRN SORE THROAT Guaifenesin 10 ml 02/14/17 13:35 Robitussin Dm - PO Q6H PRN COUGH Hydroxyzine Pamoate 50 mg 02/14/17 13:35 Vistaril - PO Q4H PRN AGITATION Ibuprofen 400 mg 02/14/17 13:35 02/26/17 09:54 Motrin - PO 400 mg Q6H PRN Administration PAIN Loperamide HCl 4 mg 02/14/17 13:35 Imodium - PO Q6H PRN DIARRHEA Magnesium Hydroxide 30 ml 02/14/17 13:35 Milk Of Magnesia - PO DAILY PRN CONSTIPATION Methadone HCl 120 mg/ 150 mg 02/21/17 06:00 02/26/17 06:15 Methadone HCl 30 mg PO 150 mg DAILY@0600 RUBY Administration Nicotine 21 mg 02/14/17 14:53 02/26/17 09:53 Nicoderm Patch - TD 21 mg DAILY RUBY Administration Nicotine Polacrilex 2 mg 02/14/17 14:27 02/24/17 08:37 Nicorette Gum - BUC 2 mg Q2H PRN Administration NICOTINE REPLACEMENT RX Multivit/Folic Acid/Iron 1 tab 02/15/17 10:00 02/26/17 09:53 Vitamins (Sjr) - PO 1 tab DAILY RUBY Administration Pseudoephedrine/Triprolidine 1 combo 02/14/17 13:35 Actifed - PO TID PRN NASAL CONGESTION Thiamine HCl 100 mg 02/14/17 22:00 02/25/17 21:07 Vitamin B1 - PO 100 mg HS RUBY Administration Medication(s) Change(s): increase Buspar 10 mg po tid Current Side Effect: No Lab tests ordered: No Lab tests reviewed: Yes Provider note:: Patient reports has been feeling dpressed, anxious, he reports no side-effects from current medications, reviewed medications with the patient ,properties and indications discussed, will increase Wellbutrin 150 and Buspar 10 mg po tid, continue to monitor progress. Total face to face time:: 30 Mental Status Exam - Mental Status Exam Alert and Oriented to: Time, Place, Person Cognitive Function: Good Patient Appearance: Well Groomed Mood: Depressed, Sad, Anxious Patient Behavior: Appropriate, Cooperative Speech Pattern: Clear, Appropriate Voice Loudness: Normal Thought Process: Intact Thought Disorder: Not Present Hallucinations: Denies Suicidal Ideation: Denies Homicidal Ideation: Denies Insight/Judgement: Fair Sleep: Fair Appetite: Fair Muscle strength/Tone: Normal Gait/Station: Normal Psychiatric Treatment Plan - Problem List (1) Cocaine dependence, uncomplicated Current Visit: No (2) Nicotine dependence Current Visit: No Qualifiers: Nicotine product type: cigarettes Substance use status: uncomplicated Qualified Code(s): F17.210 - Nicotine dependence, cigarettes, uncomplicated (3) Opioid dependence on agonist therapy Current Visit: No (4) TUNG (generalized anxiety disorder) Current Visit: Yes (5) Alcohol dependence Current Visit: Yes (6) Sedative hypnotic or anxiolytic dependence Current Visit: Yes (7) Psychoactive substance-induced mood disorder Current Visit: Yes
[2017-02-26] MEDS: busPIRone HCL 10 MG TABLET (FP) PO SCH ×2 (14:32→21:11)
[2017-02-26] MEDS: THIAMINE HCL 100 MG TABLET (FP) PO SCH (21:11)
[2017-02-27] MEDS ORDERED: METHADONE HCL 10 MG TABLET ONE (03:09)
[2017-02-27] MEDS ORDERED: METHADONE HCL 40 MG DISPERSABLE TABLET ONE (03:09)
[2017-02-27] MEDS: busPIRone HCL 10 MG TABLET (FP) PO SCH ×3 (06:09→21:10)
[2017-02-27] MEDS: METHADONE 120 MG, METHADONE 30 MG PO SCH (06:09)
[2017-02-27] MEDS: IBUPROFEN 400 MG TABLET (FP) PO PRN ×2 (08:41→21:11)
[2017-02-27] MEDS: NICOTINE POLACRILEX 2 MG GUM BUC PRN (08:42)
[2017-02-27] MEDS: PRENATAL VITAMINS W/ FOLIC ACID TABLET (FP) PO SCH (09:58)
[2017-02-27] MEDS: buPROPion HCL 75 MG TABLET PO SCH (09:58)
[2017-02-27] MEDS: NICOTINE 21 MG/24 HOURS TOPICAL PATCH TD SCH (09:59)
[2017-02-27] MEDS: THIAMINE HCL 100 MG TABLET (FP) PO SCH (21:10)
[2017-02-28] MEDS ORDERED: METHADONE HCL 10 MG TABLET PO SCH (06:00)
[2017-02-28] MEDS ORDERED: METHADONE HCL 10 MG TABLET ONE (06:04)
[2017-02-28] MEDS ORDERED: METHADONE HCL 40 MG DISPERSABLE TABLET ONE (06:05)
[2017-02-28] MEDS: METHADONE 120 MG, METHADONE 30 MG PO SCH (06:10)
[2017-02-28] MEDS: busPIRone HCL 10 MG TABLET (FP) PO SCH ×3 (06:10→21:11)
[2017-02-28] MEDS: PRENATAL VITAMINS W/ FOLIC ACID TABLET (FP) PO SCH (09:39)
[2017-02-28] MEDS: buPROPion HCL 75 MG TABLET PO SCH (09:39)
[2017-02-28] MEDS: NICOTINE 21 MG/24 HOURS TOPICAL PATCH TD SCH (09:40)
[2017-02-28] MEDS: NICOTINE POLACRILEX 2 MG GUM BUC PRN (09:42)
[2017-02-28] MEDS: IBUPROFEN 400 MG TABLET (FP) PO PRN (09:42)
--- NOTE | 2017-02-28 12:41 | PN ---
S Progress Note Note: SORE THROAT,CONSTIPATED,URI,AMOXICILLIN 500 MGS PO TID FOR 7 DAYS,COLACE 100 MGS PO TID
[2017-02-28] MEDS: DOCUSATE SODIUM 100 MG CAPSULE (FP) PO SCH ×2 (14:31→21:11)
[2017-02-28] MEDS: AMOXICILLIN 500 MG CAPSULE (FP) PO SCH ×2 (14:31→21:11)
[2017-02-28] MEDS: THIAMINE HCL 100 MG TABLET (FP) PO SCH (21:11)
[2017-03-01] MEDS ORDERED: METHADONE HCL 40 MG DISPERSABLE TABLET ONE (03:06)
[2017-03-01] MEDS ORDERED: METHADONE HCL 10 MG TABLET ONE (03:06)
[2017-03-01] MEDS: METHADONE 120 MG, METHADONE 30 MG PO SCH (06:07)
[2017-03-01] MEDS: busPIRone HCL 10 MG TABLET (FP) PO SCH ×3 (06:07→21:10)
[2017-03-01] MEDS: AMOXICILLIN 500 MG CAPSULE (FP) PO SCH ×3 (06:07→21:10)
[2017-03-01] MEDS: DOCUSATE SODIUM 100 MG CAPSULE (FP) PO SCH ×3 (06:07→21:10)
[2017-03-01] MEDS: buPROPion HCL 75 MG TABLET PO SCH (09:41)
[2017-03-01] MEDS: PRENATAL VITAMINS W/ FOLIC ACID TABLET (FP) PO SCH (09:41)
[2017-03-01] MEDS: NICOTINE 21 MG/24 HOURS TOPICAL PATCH TD SCH (09:41)
[2017-03-01] MEDS: IBUPROFEN 400 MG TABLET (FP) PO PRN (09:42)
[2017-03-01] MEDS: THIAMINE HCL 100 MG TABLET (FP) PO SCH (21:10)
[2017-03-02] MEDS ORDERED: METHADONE HCL 10 MG TABLET ONE (03:06)
[2017-03-02] MEDS ORDERED: METHADONE HCL 40 MG DISPERSABLE TABLET ONE (03:06)
[2017-03-02] MEDS: AMOXICILLIN 500 MG CAPSULE (FP) PO SCH ×3 (06:05→21:10)
[2017-03-02] MEDS: METHADONE 120 MG, METHADONE 30 MG PO SCH (06:05)
[2017-03-02] MEDS: DOCUSATE SODIUM 100 MG CAPSULE (FP) PO SCH ×3 (06:05→21:10)
[2017-03-02] MEDS: busPIRone HCL 10 MG TABLET (FP) PO SCH ×3 (06:05→21:10)
[2017-03-02] MEDS: IBUPROFEN 400 MG TABLET (FP) PO PRN (07:20)
[2017-03-02] MEDS: NICOTINE POLACRILEX 2 MG GUM BUC PRN (08:27)
[2017-03-02] MEDS: buPROPion HCL 75 MG TABLET PO SCH (09:51)
[2017-03-02] MEDS: PRENATAL VITAMINS W/ FOLIC ACID TABLET (FP) PO SCH (09:52)
[2017-03-02] MEDS: NICOTINE 21 MG/24 HOURS TOPICAL PATCH TD SCH (09:53)
[2017-03-02] MEDS: THIAMINE HCL 100 MG TABLET (FP) PO SCH (21:10)
[2017-03-03] MEDS ORDERED: METHADONE HCL 40 MG DISPERSABLE TABLET ONE (03:13)
[2017-03-03] MEDS ORDERED: METHADONE HCL 10 MG TABLET ONE (03:13)
[2017-03-03] MEDS: busPIRone HCL 10 MG TABLET (FP) PO SCH ×3 (06:16→21:10)
[2017-03-03] MEDS: METHADONE 120 MG, METHADONE 30 MG PO SCH (06:16)
[2017-03-03] MEDS: AMOXICILLIN 500 MG CAPSULE (FP) PO SCH ×3 (06:54→21:10)
[2017-03-03] MEDS: DOCUSATE SODIUM 100 MG CAPSULE (FP) PO SCH ×3 (06:54→21:10)
[2017-03-03] MEDS: IBUPROFEN 400 MG TABLET (FP) PO PRN ×2 (08:15→14:05)
[2017-03-03] MEDS: NICOTINE POLACRILEX 2 MG GUM BUC PRN (08:15)
[2017-03-03] MEDS: buPROPion HCL 75 MG TABLET PO SCH (09:47)
[2017-03-03] MEDS: PRENATAL VITAMINS W/ FOLIC ACID TABLET (FP) PO SCH (09:47)
[2017-03-03] MEDS: NICOTINE 21 MG/24 HOURS TOPICAL PATCH TD SCH (09:47)
[2017-03-03] MEDS: ALBUTEROL SO4 6.7 GM HFA INHALER IH PRN (09:48)
[2017-03-03] MEDS: THIAMINE HCL 100 MG TABLET (FP) PO SCH (21:10)
[2017-03-04] MEDS ORDERED: METHADONE HCL 10 MG TABLET ONE (05:05)
[2017-03-04] MEDS ORDERED: METHADONE HCL 40 MG DISPERSABLE TABLET ONE (05:05)
[2017-03-04] MEDS: DOCUSATE SODIUM 100 MG CAPSULE (FP) PO SCH ×3 (06:02→21:06)
[2017-03-04] MEDS: busPIRone HCL 10 MG TABLET (FP) PO SCH ×3 (06:02→21:06)
[2017-03-04] MEDS: AMOXICILLIN 500 MG CAPSULE (FP) PO SCH ×3 (06:02→21:07)
[2017-03-04] MEDS: METHADONE 120 MG, METHADONE 30 MG PO SCH (06:03)
[2017-03-04] MEDS: IBUPROFEN 400 MG TABLET (FP) PO PRN (08:18)
[2017-03-04] MEDS: NICOTINE POLACRILEX 2 MG GUM BUC PRN (08:18)
[2017-03-04] MEDS: PRENATAL VITAMINS W/ FOLIC ACID TABLET (FP) PO SCH (09:46)
[2017-03-04] MEDS: buPROPion HCL 75 MG TABLET PO SCH (09:46)
[2017-03-04] MEDS: NICOTINE 21 MG/24 HOURS TOPICAL PATCH TD SCH (09:46)
[2017-03-04] MEDS: THIAMINE HCL 100 MG TABLET (FP) PO SCH (21:07)
[2017-03-05] MEDS ORDERED: METHADONE HCL 10 MG TABLET ONE (03:19)
[2017-03-05] MEDS ORDERED: METHADONE HCL 40 MG DISPERSABLE TABLET ONE (03:20)
[2017-03-05] MEDS: METHADONE 120 MG, METHADONE 30 MG PO SCH (06:05)
[2017-03-05] MEDS: DOCUSATE SODIUM 100 MG CAPSULE (FP) PO SCH ×3 (06:05→21:09)
[2017-03-05] MEDS: busPIRone HCL 10 MG TABLET (FP) PO SCH ×3 (06:05→21:09)
[2017-03-05] MEDS: AMOXICILLIN 500 MG CAPSULE (FP) PO SCH ×3 (06:05→21:09)
[2017-03-05] MEDS: NICOTINE POLACRILEX 2 MG GUM BUC PRN ×2 (06:06→17:51)
[2017-03-05] MEDS: PRENATAL VITAMINS W/ FOLIC ACID TABLET (FP) PO SCH (09:54)
[2017-03-05] MEDS: NICOTINE 21 MG/24 HOURS TOPICAL PATCH TD SCH (09:54)
[2017-03-05] MEDS: buPROPion HCL 75 MG TABLET PO SCH (09:54)
[2017-03-05] MEDS: IBUPROFEN 400 MG TABLET (FP) PO PRN (09:54)
[2017-03-05] MEDS: THIAMINE HCL 100 MG TABLET (FP) PO SCH (21:09)
[2017-03-06] MEDS ORDERED: METHADONE HCL 10 MG TABLET ONE (06:11)
[2017-03-06] MEDS ORDERED: METHADONE HCL 40 MG DISPERSABLE TABLET ONE (06:11)
[2017-03-06] MEDS: DOCUSATE SODIUM 100 MG CAPSULE (FP) PO SCH ×3 (06:18→21:11)
[2017-03-06] MEDS: busPIRone HCL 10 MG TABLET (FP) PO SCH ×3 (06:18→21:11)
[2017-03-06] MEDS: AMOXICILLIN 500 MG CAPSULE (FP) PO SCH ×3 (06:18→21:11)
[2017-03-06] MEDS: METHADONE 120 MG, METHADONE 30 MG PO SCH (06:19)
[2017-03-06] MEDS: NICOTINE POLACRILEX 2 MG GUM BUC PRN ×2 (06:19→21:12)
[2017-03-06] MEDS: buPROPion HCL 75 MG TABLET PO SCH (09:41)
[2017-03-06] MEDS: PRENATAL VITAMINS W/ FOLIC ACID TABLET (FP) PO SCH (09:41)
[2017-03-06] MEDS: ALBUTEROL SO4 6.7 GM HFA INHALER IH PRN (09:41)
[2017-03-06] MEDS: NICOTINE 21 MG/24 HOURS TOPICAL PATCH TD SCH (09:42)
[2017-03-06] MEDS: IBUPROFEN 400 MG TABLET (FP) PO PRN (14:09)
[2017-03-06] MEDS: THIAMINE HCL 100 MG TABLET (FP) PO SCH (21:11)
[2017-03-07] MEDS ORDERED: METHADONE HCL 40 MG DISPERSABLE TABLET ONE (03:08)
[2017-03-07] MEDS ORDERED: METHADONE HCL 10 MG TABLET ONE (03:08)
[2017-03-07] MEDS: DOCUSATE SODIUM 100 MG CAPSULE (FP) PO SCH ×3 (06:02→21:14)
[2017-03-07] MEDS: busPIRone HCL 10 MG TABLET (FP) PO SCH ×3 (06:02→21:14)
[2017-03-07] MEDS: NICOTINE POLACRILEX 2 MG GUM BUC PRN (06:02)
[2017-03-07] MEDS: METHADONE 120 MG, METHADONE 30 MG PO SCH (06:02)
[2017-03-07] MEDS: AMOXICILLIN 500 MG CAPSULE (FP) PO SCH ×2 (06:02→14:28)
[2017-03-07] MEDS: NICOTINE 21 MG/24 HOURS TOPICAL PATCH TD SCH (10:02)
[2017-03-07] MEDS: buPROPion HCL 75 MG TABLET PO SCH (10:02)
[2017-03-07] MEDS: PRENATAL VITAMINS W/ FOLIC ACID TABLET (FP) PO SCH (10:02)
[2017-03-07] MEDS: IBUPROFEN 400 MG TABLET (FP) PO PRN (10:03)
[2017-03-07] MEDS: THIAMINE HCL 100 MG TABLET (FP) PO SCH (21:14)
[2017-03-08] MEDS ORDERED: METHADONE HCL 10 MG TABLET ONE (03:25)
[2017-03-08] MEDS ORDERED: METHADONE HCL 40 MG DISPERSABLE TABLET ONE (03:25)
[2017-03-08] MEDS: METHADONE 120 MG, METHADONE 30 MG PO SCH (06:21)
[2017-03-08] MEDS: busPIRone HCL 10 MG TABLET (FP) PO SCH ×3 (06:22→21:06)
[2017-03-08] MEDS: DOCUSATE SODIUM 100 MG CAPSULE (FP) PO SCH ×3 (06:22→21:06)
[2017-03-08] MEDS: NICOTINE POLACRILEX 2 MG GUM BUC PRN ×2 (06:22→21:07)
[2017-03-08] MEDS: NICOTINE 21 MG/24 HOURS TOPICAL PATCH TD SCH (09:35)
[2017-03-08] MEDS: buPROPion HCL 75 MG TABLET PO SCH (09:35)
[2017-03-08] MEDS: PRENATAL VITAMINS W/ FOLIC ACID TABLET (FP) PO SCH (09:36)
[2017-03-08] MEDS: IBUPROFEN 400 MG TABLET (FP) PO PRN (09:36)
[2017-03-08] MEDS: THIAMINE HCL 100 MG TABLET (FP) PO SCH (21:06)
[2017-03-09] MEDS ORDERED: METHADONE HCL 10 MG TABLET ONE (03:20)
[2017-03-09] MEDS ORDERED: METHADONE HCL 40 MG DISPERSABLE TABLET ONE (03:20)
[2017-03-09] MEDS: busPIRone HCL 10 MG TABLET (FP) PO SCH ×3 (06:25→21:14)
[2017-03-09] MEDS: DOCUSATE SODIUM 100 MG CAPSULE (FP) PO SCH ×3 (06:25→21:13)
[2017-03-09] MEDS: METHADONE 120 MG, METHADONE 30 MG PO SCH (06:25)
[2017-03-09] MEDS: NICOTINE POLACRILEX 2 MG GUM BUC PRN ×3 (06:26→21:14)
[2017-03-09] MEDS: buPROPion HCL 75 MG TABLET PO SCH (09:49)
[2017-03-09] MEDS: PRENATAL VITAMINS W/ FOLIC ACID TABLET (FP) PO SCH (09:49)
[2017-03-09] MEDS: NICOTINE 21 MG/24 HOURS TOPICAL PATCH TD SCH (09:49)
[2017-03-09] MEDS: ALBUTEROL SO4 6.7 GM HFA INHALER IH PRN (14:20)
[2017-03-09] MEDS: THIAMINE HCL 100 MG TABLET (FP) PO SCH (21:14)
[2017-03-10] MEDS ORDERED: METHADONE HCL 10 MG TABLET ONE (03:00)
[2017-03-10] MEDS ORDERED: METHADONE HCL 40 MG DISPERSABLE TABLET ONE (03:00)
[2017-03-10] MEDS: DOCUSATE SODIUM 100 MG CAPSULE (FP) PO SCH ×3 (05:47→21:13)
[2017-03-10] MEDS: busPIRone HCL 10 MG TABLET (FP) PO SCH ×3 (05:47→21:13)
[2017-03-10] MEDS: METHADONE 120 MG, METHADONE 30 MG PO SCH (05:47)
[2017-03-10] MEDS: NICOTINE POLACRILEX 2 MG GUM BUC PRN ×2 (05:48→09:41)
[2017-03-10] MEDS: PRENATAL VITAMINS W/ FOLIC ACID TABLET (FP) PO SCH (09:40)
[2017-03-10] MEDS: buPROPion HCL 75 MG TABLET PO SCH (09:40)
[2017-03-10] MEDS: IBUPROFEN 400 MG TABLET (FP) PO PRN (09:40)
[2017-03-10] MEDS: NICOTINE 21 MG/24 HOURS TOPICAL PATCH TD SCH (09:40)
[2017-03-10] MEDS: THIAMINE HCL 100 MG TABLET (FP) PO SCH (21:13)
[2017-03-11] MEDS ORDERED: METHADONE HCL 10 MG TABLET ONE (02:33)
[2017-03-11] MEDS ORDERED: METHADONE HCL 40 MG DISPERSABLE TABLET ONE (02:33)
[2017-03-11] MEDS: NICOTINE POLACRILEX 2 MG GUM BUC PRN ×2 (06:03→09:45)
[2017-03-11] MEDS: busPIRone HCL 10 MG TABLET (FP) PO SCH ×3 (06:03→21:08)
[2017-03-11] MEDS: METHADONE 120 MG, METHADONE 30 MG PO SCH (06:03)
[2017-03-11] MEDS: DOCUSATE SODIUM 100 MG CAPSULE (FP) PO SCH ×3 (06:03→21:08)
[2017-03-11] MEDS: NICOTINE 21 MG/24 HOURS TOPICAL PATCH TD SCH (09:43)
[2017-03-11] MEDS: PRENATAL VITAMINS W/ FOLIC ACID TABLET (FP) PO SCH (09:44)
[2017-03-11] MEDS: buPROPion HCL 75 MG TABLET PO SCH (09:44)
[2017-03-11] MEDS: THIAMINE HCL 100 MG TABLET (FP) PO SCH (21:08)
[2017-03-11] MEDS: TOLNAFTATE 1% CREAM 15 GM TUBE TP SCH (21:08)
[2017-03-12] MEDS ORDERED: METHADONE HCL 10 MG TABLET ONE (03:09)
[2017-03-12] MEDS ORDERED: METHADONE HCL 40 MG DISPERSABLE TABLET ONE (03:10)
[2017-03-12] MEDS: METHADONE 120 MG, METHADONE 30 MG PO SCH (06:08)
[2017-03-12] MEDS: DOCUSATE SODIUM 100 MG CAPSULE (FP) PO SCH ×3 (06:08→21:10)
[2017-03-12] MEDS: busPIRone HCL 10 MG TABLET (FP) PO SCH (06:08)
[2017-03-12] MEDS: NICOTINE POLACRILEX 2 MG GUM BUC PRN ×2 (06:09→09:42)
[2017-03-12 06:41] VITALS: TEMP 98.4
[2017-03-12] MEDS: PRENATAL VITAMINS W/ FOLIC ACID TABLET (FP) PO SCH (09:39)
[2017-03-12] MEDS: buPROPion HCL 75 MG TABLET PO SCH (09:39)
[2017-03-12] MEDS: NICOTINE 21 MG/24 HOURS TOPICAL PATCH TD SCH (09:40)
[2017-03-12] MEDS: TOLNAFTATE 1% CREAM 15 GM TUBE TP SCH ×2 (09:41→21:10)
--- NOTE | 2017-03-12 11:06 | PN ---
Psychiatric Progress Note Vital Signs: Vital Signs Period Temp Pulse Resp BP Sys/Moran Pulse Ox Last 24 Hr 98.4 F 71 16-20 133/74 Date of Session: 03/12/17 Chief Complaint:: discharge visit HPI: Patient is addressing alcohol, opioid, sedative hypnotic , cocaine, nicotine dependence comorbid TUNG and substance induced mood disorder. ROS: COPD, Asthma medically managed. Current Medications: Active Medications Generic Name Dose Route Start Last Admin Trade Name Freq PRN Reason Stop Dose Admin Acetaminophen 650 mg 02/14/17 13:35 Tylenol - PO Q4H PRN FEVER OR PAIN Al Hydroxide/Mg Hydroxide 30 ml 02/14/17 13:35 Mylanta Oral Suspension - PO Q6H PRN DYSPEPSIA Albuterol Sulfate 2 puff 02/14/17 13:36 03/09/17 14:20 Ventolin Hfa Inhaler - IH 2 inh Q4H PRN Administration ASTHMA Bupropion HCl 200 mg 03/12/17 11:04 Wellbutrin - PO DAILY RUBY Buspirone HCl 15 mg 03/12/17 11:04 Buspar - PO TID RUBY Diphenhydramine HCl 50 mg 02/14/17 13:35 02/22/17 21:48 Benadryl - PO 50 mg HSMR1 PRN Administration FOR ITCHING Docusate Sodium 100 mg 02/28/17 14:00 03/12/17 06:08 Colace - PO 100 mg TID RUBY Administration Eucalyptus/Menthol/Phenol/Sorbitol 1 each 02/14/17 13:35 Cepastat Lozenge - MM Q4H PRN SORE THROAT Guaifenesin 10 ml 02/14/17 13:35 Robitussin Dm - PO Q6H PRN COUGH Hydroxyzine Pamoate 50 mg 02/14/17 13:35 Vistaril - PO Q4H PRN AGITATION Ibuprofen 400 mg 02/14/17 13:35 03/10/17 09:40 Motrin - PO 400 mg Q6H PRN Administration PAIN Loperamide HCl 4 mg 02/14/17 13:35 Imodium - PO Q6H PRN DIARRHEA Magnesium Hydroxide 30 ml 02/14/17 13:35 Milk Of Magnesia - PO DAILY PRN CONSTIPATION Methadone HCl 120 mg/ 150 mg 03/13/17 06:00 Methadone HCl 30 mg PO 03/19/17 05:59 DAILY@0600 RUBY Nicotine 21 mg 02/14/17 14:53 03/12/17 09:40 Nicoderm Patch - TD 21 mg DAILY RUBY Administration Nicotine Polacrilex 2 mg 02/14/17 14:27 03/12/17 09:42 Nicorette Gum - BUC 2 mg Q2H PRN Administration NICOTINE REPLACEMENT RX Multivit/Folic Acid/Iron 1 tab 02/15/17 10:00 03/12/17 09:39 Vitamins (Sjr) - PO 1 tab DAILY RUBY Administration Pseudoephedrine/Triprolidine 1 combo 02/14/17 13:35 Actifed - PO TID PRN NASAL CONGESTION Thiamine HCl 100 mg 02/14/17 22:00 03/11/17 21:08 Vitamin B1 - PO 100 mg HS RUBY Administration Tolnaftate 1 applic 03/11/17 22:00 03/12/17 09:41 Tinactin 1% Cream - TP 1 applic BID RUBY Administration Medication(s) Change(s): increase Buspar 15 mg po tid and Wellbutrin 200 mg po daily. Current Side Effect: No Lab tests ordered: No Lab tests reviewed: Yes Provider note:: Patient will complete his treatment and meet his goals on , he will continue to address his issues at [facility] treatment program. Patient reported that he feels somewhat anxious leaving treatment and asked to increase Buspar, patient states that medication effective as well he reported that was on Wellbutrin 200 mg daily, dosage adjuated. Patient focused on insights he gained in this treatment and importance of changing behavior to utilize supports available to prevent relapse. Patient is making positive statements to continue his abstinence and use alternative methods to cope with life stressors. Scripts provided for 30 days. Stable for discharge tomorrow. Total face to face time:: 35 Mental Status Exam - Mental Status Exam Alert and Oriented to: Time, Place, Person Cognitive Function: Good Patient Appearance: Well Groomed Mood: Anxious, Hopeful Affect: Appropriate, Mood Congruent Patient Behavior: Appropriate, Cooperative Speech Pattern: Clear, Appropriate Voice Loudness: Normal Thought Process: Intact, Goal Oriented Thought Disorder: Not Present Hallucinations: None, Denies Suicidal Ideation: None, Denies Homicidal Ideation: None, Denies Insight/Judgement: Good Sleep: Well Appetite: Good Muscle strength/Tone: Normal Gait/Station: Normal Psychiatric Treatment Plan - Problem List (2) Nicotine dependence Qualifiers: Nicotine product type: cigarettes Substance use status: uncomplicated Qualified Code(s): F17.210 - Nicotine dependence, cigarettes, uncomplicated
[2017-03-12] MEDS: IBUPROFEN 400 MG TABLET (FP) PO PRN (14:18)
[2017-03-12] MEDS: THIAMINE HCL 100 MG TABLET (FP) PO SCH (21:10)
[2017-03-13] MEDS ORDERED: METHADONE 120 MG, METHADONE 30 MG PO SCH (06:00)
[2017-03-13] MEDS ORDERED: METHADONE HCL 10 MG TABLET ONE (06:03)
[2017-03-13] MEDS ORDERED: METHADONE HCL 40 MG DISPERSABLE TABLET ONE (06:03)
[2017-03-13] MEDS: DOCUSATE SODIUM 100 MG CAPSULE (FP) PO SCH (06:05)
[2017-03-13] MEDS: NICOTINE POLACRILEX 2 MG GUM BUC PRN (06:08)
[2017-03-13 06:36] VITALS: BP 139/89; PULSE 83
[2017-03-13] MEDS ORDERED: buPROPion HCL 100 MG TABLET PO SCH (10:00)
== END 2017-03-13 06:50 | disposition home or self-care (01) | DRG 773 ==
LOC: YASAS 12:27 → Y5N 12:28
PROVIDERS: ADMIT Psychiatry & Neurology Psychiatry; ATTEND Psychiatry & Neurology Psychiatry
PROC: HZ2ZZZZ Detoxification Services for Substance Abuse Treatment (ICD-10-PCS; principal; 2017-03-13)
DX: F11.20 Opioid dependence, uncomplicated (principal); F13.20 Sedative, hypnotic or anxiolytic dependence, uncomplicated; F10.20 Alcohol dependence, uncomplicated; F14.20 Cocaine dependence, uncomplicated; F19.24 Other psychoactive substance dependence with psychoactive substance-induced mood disorder; F41.1 Generalized anxiety disorder; Z59.0 Homelessness

== ENCOUNTER 2017-05-30 12:40 | Inpatient (IN) | payer OTHER ==
[2017-05-30 13:14] VITALS: BMI 36.9
--- NOTE | 2017-05-30 15:01 | HP ---
CIWA Score - CIWA Score Nausea/Vomitin Muscle Tremors: 3 Anxiety: 3 Agitation: 3 Paroxysmal Sweats: 1-Minimal Palms Moist Orientation: 0-Oriented Tacttile Disturbances: 2-Mild Itch/Numbness/Burn Auditory Disturbances: 2-Mild Harshness/Frighten Visual Disturbances: 2-Mild Sensitivity Headache: 2-Mild CIWA-Ar Total Score: 21 Admission ROS BHS - HPI Chief Complaint: i need help to stop drinking alcohol and xanax, Allergies/Adverse Reactions: Allergies Allergy/AdvReac Type Severity Reaction Status Date / Time No Known Allergies Allergy Verified 05/30/17 14:41 History of Present Illness: this 41years old male with alcohol and xanax dependence,mmtp 50 mgs/day,last medicated today,last treatmant [facility] 02/10/17 to 02/14/17 rehab 02/14/17 to 03/13/17 [facility] asthma,copd,blindness eft eye post trauma,low back pain anxiety and depression surgery for club feet longest period of sobriety 2 years Exam Limitations: No Limitations - Ebola screening Have you traveled outside of the country in the last 21 days: No Have you had contact with anyone from an Ebola affected area: No Have you been sick,other than usual withdrawal symptoms: No Do you have a fever: No - Review of Systems Constitutional: Chills, Diaphoresis, Loss of Appetite, Malaise, Night Sweats, Changes in sleep, Weakness EENT: reports: Nose Congestion, Other (blindneee of left eye postt trauma) Respiratory: reports: No Symptoms reported, Other (asthma,copd) Cardiac: reports: No Symptoms Reported GI: reports: Diarrhea, Nausea, Vomiting, Abdominal cramping : reports: No Symptoms Reported Musculoskeletal: reports: Back Pain, Muscle Pain Integumentary: reports: Dryness Neuro: reports: Headache, Tremors Endocrine: reports: No Symptoms Reported Hematology: reports: No Symptoms Reported Psychiatric: reports: Agitated, Anxious Patient History - Patient Medical History Hx Anemia: No Hx Asthma: Yes (on albuterol inhaler) Hx Chronic Obstructive Pulmonary Disease (COPD): Yes (on albuterol inhaler) Hx Cancer: No Hx Cardiac Disorders: No Hx Congestive Heart Failure: No Hx Hypertension: No Hx Hypercholesterolemia: No Hx Pacemaker: No HX Cerebrovascular Accident: No Hx Seizures: No Hx Dementia: No Hx Diabetes: No Hx Gastrointestinal Disorders: No Hx Liver Disease: No Hx Genitourinary Disorders: No Hx Sexually Transmitted Disorders: No Hx Renal Disease (ESRD): No Hx Thyroid Disease: No Hx Human Immunodeficiency Virus (HIV): Yes (11/29) Hx Hepatitis C: No Hx Depression: Yes Hx Suicide Attempt: No Hx Bipolar Disorder: No Hx Schizophrenia: No Other Medical History: no suicidal,no homicidal, - Patient Surgical History Past Surgical History: Yes Hx Neurologic Surgery: No Hx Cataract Extraction: No Hx Cardiac Surgery: No Hx Lung Surgery: No Hx Breast Surgery: No Hx Breast Biopsy: No Hx Abdominal Surgery: No Hx Appendectomy: No Hx Cholecystectomy: No Hx Genitourinary Surgery: No Hx Section: No Hx Orthopedic Surgery: Yes (CLUB FEET REPAIR 12 SX TO BLE) Other Surgical History: L eye corneal transplant.blindness Anesthesia Reaction: No - PPD History Previous Implant?: Yes Documented Results: Negative w/proof Implanted On Prior [facility] Admission?: Yes Date: 02/12/17 Results: 0 mm PPD to be Administered?: No - Smoking Cessation Smoking history: Current every day smoker Have you smoked in the past 12 months: Yes Aproximately how many cigarettes per day: 10 Cigars Per Day: 0 Hx Chewing Tobacco Use: No Initiated information on smoking cessation: Yes 'Breaking Loose' booklet given: 05/30/17 - Substance & Tx. History Hx Alcohol Use: Yes Hx Substance Use: Yes Substance Use Type: Alcohol, Cocaine, Tranquilizers - Substances Abused Alcohol Route: Oral Frequency: Daily Amount used: 48 OZ OF FOUR LOCO Age of first use: 18 Date of Last Use: 05/29/17 Alprazolam (Xanax) Route: Oral Frequency: Daily Amount used: 8-12MG Age of first use: 18 Date of Last Use: 05/30/17 Crack Route: Smoking Frequency: 1-2 times per week Amount used: $30-40 Age of first use: 12 Date of Last Use: 05/29/17 Family Disease History - Family Disease History Family Disease History: Other: Mother ( MVA), Brother (DRUG ABUSE) Admission Physical Exam BHS - Vital Signs Vital Signs: Vital Signs - 24 hr 05/30/17 12:51 Temperature 98.0 F Pulse Rate 72 Respiratory 18 Rate Blood Pressure 126/67 - Physical General Appearance: Yes: Moderate Distress, Tremorous, Irritable, Sweating, Anxious HEENTM: Yes: Normal ENT Inspection, IRWIN, Pharynx Normal, Other (blindness of lef eye post trauma) Respiratory: Yes: Lungs Clear, Normal Breath Sounds, No Respiratory Distress Neck: Yes: Within Normal Limits, Supple, Trachea in good position Breast: Yes: Within Normal Limits Cardiology: Yes: Within Normal Limits, Regular Rhythm, Regular Rate, S1, S2 Abdominal: Yes: Within Normal Limits, Normal Bowel Sounds, Non Tender, Flat, Soft Genitourinary: Yes: Within Normal Limits Back: Yes: Muscle Spasm Musculoskeletal: Yes: full range of Motion, Back pain, Muscle Pain Extremities: Yes: Within Normal Limits, Normal Range of Motion, Tremors 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 NML intact, Alert, Motor Strength 5/5 Integumentary: Yes: Dry Lymphatic: Yes: Within Normal Limits - Diagnostic (1) Alcohol dependence with uncomplicated withdrawal Current Visit: Yes Status: Acute (2) Cocaine dependence, uncomplicated Current Visit: Yes Status: Acute (3) Nicotine dependence Current Visit: Yes Status: Acute Qualifiers: Nicotine product type: cigarettes Substance use status: uncomplicated Qualified Code(s): F17.210 - Nicotine dependence, cigarettes, uncomplicated (4) Sedative, hypnotic or anxiolytic dependence with withdrawal, uncomplicated Current Visit: Yes Status: Acute (5) Asthma Current Visit: Yes Status: Chronic Qualifiers: Asthma severity: mild intermittent (6) COPD (chronic obstructive pulmonary disease) Current Visit: No Status: Chronic Qualifiers: COPD type: COPD with acute exacerbation Qualified Code(s): J44.1 - Chronic obstructive pulmonary disease with (acute) exacerbation (7) Methadone maintenance therapy patient Current Visit: No Status: Chronic (8) Blindness of left eye Current Visit: Yes Status: Chronic (9) Low back pain Current Visit: Yes Status: Chronic Cleared for Admission BHS - Detox or Rehab S Level of Care: Medically Managed Detox Regimen/Protocol: Valium S Breath Alcohol Content Breath Alcohol Content: 0 Urine Drug Screen - Results Drug Screen Negative: No Urine Drug Screen Results: ALEX-Cocaine, PCP-Phencyclidine, BZO-Benzodiazepines, MTD-Methadone
[2017-05-30] MEDS ORDERED: P-EPHED 60MG/TRIPROLIDI 2.5MG TABLET PO PRN (15:17)
[2017-05-30] MEDS ORDERED: MAGNESIUM CITRATE 300 ML BOTTLE PO PRN (15:17)
[2017-05-30] MEDS ORDERED: ACETAMINOPHEN 325 MG TABLET (FP) PO PRN (15:17)
[2017-05-30] MEDS ORDERED: MENTHOL/PHENOL 1 EACH UD MM PRN (15:17)
[2017-05-30] MEDS ORDERED: MAGNESIUM HYDROX 2400MG/30ML ORAL SUSPENSION 30 ML CUP PO PRN (15:17)
[2017-05-30] MEDS ORDERED: IBUPROFEN 400 MG TABLET (FP) PO PRN (15:17)
[2017-05-30] MEDS ORDERED: LOPERAMIDE HCL 2 MG CAPSULE PO PRN (15:17)
[2017-05-30] MEDS ORDERED: hydrOXYzine PAMOATE 50 MG CAPSULE (FP) PO PRN (15:17)
[2017-05-30] MEDS ORDERED: guaiFENesin/D-METHORPHAN HB 10 ML UNIT-DOSE CUPS PO PRN (15:17)
[2017-05-30] MEDS ORDERED: NICOTINE POLACRILEX 2 MG GUM BC PRN (15:17)
[2017-05-30] MEDS ORDERED: ALBUTEROL SO4 6.7 GM HFA INHALER IH PRN (15:28)
[2017-05-30] MEDS ORDERED: diazePAM 5 MG TABLET PO ONE (17:15)
[2017-05-30] MEDS: NICOTINE 21 MG/24 HOURS TOPICAL PATCH TD SCH (19:36)
[2017-05-30] MEDS: THIAMINE HCL 100 MG TABLET (FP) PO SCH (22:22)
[2017-05-30] MEDS: diazePAM 5 MG TABLET PO SCH (22:22)
[2017-05-30] MEDS: diphenhydrAMINE HCL 50 MG CAPSULE PO PRN (22:23)
[2017-05-30 22:35] LABS: URINE APPEARANCE CLEAR; URINE BILIRUBIN NEGATIVE (NEGATIVE); URINE BLOOD NEGATIVE (NEGATIVE); URINE COLOR YELLOW; URINE GLUCOSE (UA) NEGATIVE (NEGATIVE); URINE KETONE NEGATIVE (NEGATIVE); URINE LEUK ESTERASE TRACE (NEGATIVE); URINE NITRITE NEGATIVE (NEGATIVE); URINE PROTEIN NEGATIVE (NEGATIVE); URINE UROBILINOGEN NEGATIVE mg/dL (0.2-1.0)
[2017-05-30 22:41] LABS: URINE MUCUS RARE; URINE RBC <1 /hpf (0-3); URINE WBC <1 /hpf (3-5)
[2017-05-31] MEDS: diazePAM 5 MG TABLET PO SCH ×3 (05:28→22:37)
[2017-05-31] MEDS ORDERED: METHADONE PO SCH (06:00)
[2017-05-31 09:08] LABS: HIV 1 & 2 AB NEGATIVE; HIV 1 AGp24 NEGATIVE
[2017-05-31] MEDS ORDERED: METHADONE HCL 10 MG TABLET PO SCH (10:00)
[2017-05-31] MEDS: NICOTINE 21 MG/24 HOURS TOPICAL PATCH TD SCH (10:31)
[2017-05-31] MEDS: PRENATAL VITAMINS W/ FOLIC ACID TABLET (FP) PO SCH (10:31)
[2017-05-31] MEDS ORDERED: METHADONE HCL 10 MG TABLET (FOR DETOX USE ONLY) ONE (10:31)
[2017-05-31] MEDS ORDERED: METHADONE HCL 40 MG DISPERSABLE TABLET ONE (10:32)
[2017-05-31] MEDS: diazePAM 5 MG TABLET PO PRN ×3 (10:38→23:32)
[2017-05-31 11:12] LABS: ALBUMIN 3.5 g/dl (3.4-5.0); ANION GAP 9 (8-16); CO2 28 mmol/L (21-32); GLUCOSE,RANDOM 93 mg/dL (74-106)
[2017-05-31 11:13] LABS: MCH 28.8 pg (25.7-33.7); MCHC 33.7 g/dl (32.0-35.9); MEAN CELL VOLUME 85.5 fl (80-96); MEAN PLT VOLUME 8.3 fl (7.5-11.1); PLATELET COUNT 202 K/MM3 (134-434); RDW 13.9 % (11.9-15.9); WHITE BLOOD COUNT 5.3 K/mm3 (4.0-10.0)
[2017-05-31 11:17] LABS: ALK PHOS 84 U/L (45-117); BILIRUBIN,TOTAL 0.6 mg/dL (0.2-1.0); SGPT/ALT 31 U/L (12-78); TOT PROT 7.1 g/dl (6.4-8.2)
[2017-05-31 11:18] LABS: SGOT/AST 19 U/L (15-37)
[2017-05-31] MEDS: METHADONE PO SCH (11:25)
--- NOTE | 2017-05-31 13:40 | CONSULT ---
[facility] Psychiatric Consult - Data Date of interview: 05/31/17 Admission source: [facility] Identifying data: Readmission to [facility] for this 41 y/o male seeking detox treatment on for heroin,cocaine,xanax and alcohol dependence (tox screen is positive for PCP).Patient is single,a father of one, homeless,unemployed and deprived of any source of income. Substance Abuse History: Discussed with the patient.Mr Zapata confirms this report about his substances of addiction. Smoking Cessation. Smoking history: Current every day smoker. Have you smoked in the past 12 months: Yes. Aproximately how many cigarettes per day: 10. Cigars Per Day: 0. Hx Chewing Tobacco Use: No. Initiated information on smoking cessation: Yes. 'Breaking Loose' booklet given: 05/30/17. - Substance & Tx. History. Hx Alcohol Use: Yes. Hx Substance Use: Yes. Substance Use Type: Alcohol, Cocaine, Tranquilizers. - Substances Abused. Alcohol. Route: Oral. Frequency: Daily. Amount used: 48 OZ OF FOUR LOCO. Age of first use: 18. Date of Last Use: 05/29/17. Alprazolam (Xanax). Route: Oral. Frequency: Daily. Amount used: 8-12MG. Age of first use: 18. Date of Last Use: 05/30/17. Crack. Route: Smoking. Frequency: 1-2 times per week. Amount used: $30-40. Age of first use: 12. Date of Last Use: 05/29/17 Medical History: HIV infection since 11/2016,bronchial asthma,lower back pain, left eye blindness (eye trauma at age 21 / corneal transplant),COPD and orthosurgery for club foot. Psychiatric History: No history of psychiatric hospitalizations.No psychiatric OPD care since his discharge from [facility] ([facility] ) [facility] months ago.Was discharged with script for bupropion 100 mg/day.Diagnosed with MDD and Anxiety Disorder.Mr Moseley denies history of suicide attempts.Currently on methadone maintenance (150 mg/day) at [facility]. Physical/Sexual Abuse/Trauma History: Patient denies. Additional Comment: Urine Drug Screen Results: ALEX-Cocaine, PCP-Phencyclidine, BZO-Benzodiazepines, MTD-Methadone.Noted. Mental Status Exam - Mental Status Exam Alert and Oriented to: Time, Place, Person Cognitive Function: Good Patient Appearance: Well Groomed (tattoos over chest,anterior aspect of neck depicting a childish figure ; immobile left eye) Mood: Nervous, Anxious Affect: Mood Congruent Patient Behavior: Fatigued, Appropriate, Cooperative Voice Loudness: Normal Thought Process: Goal Oriented Thought Disorder: Not Present Hallucinations: Denies Suicidal Ideation: Denies Homicidal Ideation: Denies Insight/Judgement: Poor Sleep: Well Appetite: Good Muscle strength/Tone: Normal Gait/Station: Normal Psychiatric Findings - Problem List ([place] 1, 2,3) (1) Alcohol dependence with uncomplicated withdrawal Current Visit: Yes Status: Acute (2) Cocaine dependence, uncomplicated Current Visit: Yes Status: Acute (3) Opioid dependence with withdrawal Current Visit: Yes Status: Acute (4) Sedative, hypnotic or anxiolytic dependence with withdrawal, uncomplicated Current Visit: Yes Status: Acute (5) Opioid dependence on agonist therapy Current Visit: Yes Status: Acute (6) Sedative hypnotic or anxiolytic dependence Current Visit: Yes Status: Acute (7) PCP abuse Current Visit: Yes Status: Acute (8) Nicotine dependence Current Visit: Yes Status: Acute Qualifiers: Nicotine product type: cigarettes Substance use status: uncomplicated Qualified Code(s): F17.210 - Nicotine dependence, cigarettes, uncomplicated (9) Substance induced mood disorder Current Visit: Yes Status: Acute (10) TUNG (generalized anxiety disorder) Current Visit: Yes Status: Acute Comment: History.Non compliant with medications. (11) Blindness of left eye Current Visit: Yes Status: Chronic (12) Low back pain Current Visit: Yes Status: Chronic (13) Asthma Current Visit: Yes Status: Chronic Qualifiers: Asthma severity: mild intermittent (14) COPD (chronic obstructive pulmonary disease) Current Visit: No Status: Chronic Qualifiers: COPD type: COPD with acute exacerbation Qualified Code(s): J44.1 - Chronic obstructive pulmonary disease with (acute) exacerbation - Initial Treatment Plan Initial Treatment Plan: Psychoeducation.Detoxification in progress.Medications : wellbutrin 100 mg brett daily + buspar 5 mg po tid.Side effects/benefits discussssed with patient.Mr Zapata is in agreement with this careplan.Observation.
[2017-05-31] MEDS: busPIRone HCL 5 MG TABLET PO SCH ×2 (13:57→22:37)
--- NOTE | 2017-05-31 18:45 | EKG ---
Test Reason : Blood Pressure : / mmHG Vent. Rate : 053 BPM Atrial Rate : 053 BPM P-R Int : 146 ms QRS Dur : 106 ms QT Int : 460 ms P-R-T Axes : 023 046 041 degrees QTc Int : 431 ms SINUS BRADYCARDIA INCOMPLETE RIGHT BUNDLE BRANCH BLOCK BORDERLINE ECG WHEN COMPARED WITH ECG OF 10-FEB-2017 21:59, NO SIGNIFICANT CHANGE WAS FOUND Confirmed by CARMITA KENNEDY MD ([id number]) on 05/31/2017 6:44:58 PM Referred By: Simon Macedo Confirmed By:CARMITA KENNEDY MD
--- NOTE | 2017-05-31 21:21 | PN ---
[facility] CIWA - CIWA Score Nausea/Vomitin Muscle Tremors: 4-Moderate,w/Arms Extend Anxiety: 2 Agitation: 2 Paroxysmal Sweats: 3 Orientation: 0-Oriented Tacttile Disturbances: 2-Mild Itch/Numbness/Burn Auditory Disturbances: 2-Mild Harshness/Frighten Visual Disturbances: 2-Mild Sensitivity Headache: 0-None Present CIWA-Ar Total Score: 19 S Progress Note (SOAP) Subjective: Tremors, Stomach Cramping, Diarrhea, Interrupted sleep, Body Aches, Sweating. Objective: PT. A & O X 3. NO ACUTE DISTRESS. 05/31/17 21:19 Vital Signs Temperature 98.1 F 05/31/17 19:03 Pulse Rate 54 L 05/31/17 19:03 Respiratory Rate 18 05/31/17 19:03 Blood Pressure 106/65 05/31/17 19:03 O2 Sat by Pulse Oximetry (%) Laboratory Tests 05/30/17 05/30/17 05/31/17 13:00 21:45 06:10 WBC 5.3 RBC 4.78 Hgb 13.8 Hct 40.9 MCV 85.5 MCH 28.8 MCHC 33.7 RDW 13.9 Plt Count 202 MPV 8.3 D Sodium Potassium Chloride Carbon Dioxide Anion Gap BUN Creatinine Creat Clearance w eGFR Random Glucose Calcium Total Bilirubin AST ALT Alkaline Phosphatase Total Protein Albumin Urine Color Yellow Urine Appearance Clear Urine pH 5.0 Ur Specific [place] >= 1.030 H Urine Protein Negative Urine Glucose (UA) Negative Urine Ketones Negative Urine Blood Negative Urine Nitrite Negative Urine Bilirubin Negative Urine Urobilinogen Negative Ur Leukocyte Esterase Trace Urine RBC <1 Urine WBC <1 Urine Mucus Rare RPR Titer HIV 1&2 Antibody Screen Negative HIV P24 Antigen Negative 05/31/17 05/31/17 06:10 06:10 WBC RBC Hgb Hct MCV MCH MCHC RDW Plt Count MPV Sodium 141 Potassium 4.6 D Chloride 104 Carbon Dioxide 28 Anion Gap 9 BUN 15 Creatinine 1.0 D Creat Clearance w eGFR > 60 Random Glucose 93 Calcium 9.0 Total Bilirubin 0.6 D AST 19 ALT 31 Alkaline Phosphatase 84 Total Protein 7.1 Albumin 3.5 Urine Color Urine Appearance Urine pH Ur Specific [place] Urine Protein Urine Glucose (UA) Urine Ketones Urine Blood Urine Nitrite Urine Bilirubin Urine Urobilinogen Ur Leukocyte Esterase Urine RBC Urine WBC Urine Mucus RPR Titer Nonreactive HIV 1&2 Antibody Screen HIV P24 Antigen LABS NOTED. Assessment: 05/31/17 21:20 WITHDRAWAL SYMPTOMS. Plan: CONTINUE DETOX.
[2017-05-31] MEDS: THIAMINE HCL 100 MG TABLET (FP) PO SCH (22:37)
[2017-05-31] MEDS: diphenhydrAMINE HCL 50 MG CAPSULE PO PRN (22:37)
[2017-06-01] MEDS ORDERED: METHADONE HCL 10 MG TABLET (FOR DETOX USE ONLY) ONE (04:02)
[2017-06-01] MEDS ORDERED: METHADONE HCL 40 MG DISPERSABLE TABLET ONE (04:02)
[2017-06-01] MEDS: busPIRone HCL 5 MG TABLET PO SCH ×3 (06:07→22:33)
[2017-06-01] MEDS: METHADONE PO SCH (06:07)
[2017-06-01] MEDS: diazePAM 5 MG TABLET PO PRN ×3 (06:07→17:24)
[2017-06-01] MEDS: PRENATAL VITAMINS W/ FOLIC ACID TABLET (FP) PO SCH (10:44)
[2017-06-01] MEDS: buPROPion HCL 100 MG TABLET PO SCH (10:44)
[2017-06-01] MEDS: NICOTINE 21 MG/24 HOURS TOPICAL PATCH TD SCH (10:44)
[2017-06-01] MEDS: diazePAM 5 MG TABLET PO SCH ×2 (10:44→22:34)
[2017-06-01] MEDS: MAG HYDROX/AL HYDROX/SIMETH 30 ML UNIT-DOSE CUP PO PRN ×2 (10:45→17:25)
--- NOTE | 2017-06-01 16:30 | PN ---
[facility] CIWA - CIWA Score Nausea/Vomitin-Int. Nausea w/Dry Heave Muscle Tremors: 4-Moderate,w/Arms Extend Anxiety: 3 Agitation: 3 Paroxysmal Sweats: 3 Orientation: 0-Oriented Tacttile Disturbances: 0-None Auditory Disturbances: 0-None Visual Disturbances: 0-None Headache: 1-Very Mild CIWA-Ar Total Score: 18 S Progress Note (SOAP) Subjective: Anxious, restless, stomach ache, diarrhea, sweating, interrupted sleep ( benadryl ineffective) Objective: 06/01/17 16:29 Last Vital Signs Temp Pulse Resp BP Pulse Ox 98.7 F 67 18 101/63 06/01/17 13:52 06/01/17 13:52 06/01/17 13:52 06/01/17 13:52 Laboratory Tests 05/30/17 05/30/17 05/31/17 13:00 21:45 06:10 WBC 5.3 RBC 4.78 Hgb 13.8 Hct 40.9 MCV 85.5 MCH 28.8 MCHC 33.7 RDW 13.9 Plt Count 202 MPV 8.3 D Sodium Potassium Chloride Carbon Dioxide Anion Gap BUN Creatinine Creat Clearance w eGFR Random Glucose Calcium Total Bilirubin AST ALT Alkaline Phosphatase Total Protein Albumin Urine Color Yellow Urine Appearance Clear Urine pH 5.0 Ur Specific [place] >= 1.030 H Urine Protein Negative Urine Glucose (UA) Negative Urine Ketones Negative Urine Blood Negative Urine Nitrite Negative Urine Bilirubin Negative Urine Urobilinogen Negative Ur Leukocyte Esterase Trace Urine RBC <1 Urine WBC <1 Urine Mucus Rare RPR Titer HIV 1&2 Antibody Screen Negative HIV P24 Antigen Negative 05/31/17 05/31/17 06:10 06:10 WBC RBC Hgb Hct MCV MCH MCHC RDW Plt Count MPV Sodium 141 Potassium 4.6 D Chloride 104 Carbon Dioxide 28 Anion Gap 9 BUN 15 Creatinine 1.0 D Creat Clearance w eGFR > 60 Random Glucose 93 Calcium 9.0 Total Bilirubin 0.6 D AST 19 ALT 31 Alkaline Phosphatase 84 Total Protein 7.1 Albumin 3.5 Urine Color Urine Appearance Urine pH Ur Specific [place] Urine Protein Urine Glucose (UA) Urine Ketones Urine Blood Urine Nitrite Urine Bilirubin Urine Urobilinogen Ur Leukocyte Esterase Urine RBC Urine WBC Urine Mucus RPR Titer Nonreactive HIV 1&2 Antibody Screen HIV P24 Antigen Labs noted Assessment: 06/01/17 16:30 Withdrawal symptoms Plan: Continue detox
[2017-06-01] MEDS: THIAMINE HCL 100 MG TABLET (FP) PO SCH (22:33)
[2017-06-01] MEDS: ZOLPIDEM TARTRATE 5 MG TABLET PO PRN (22:34)
[2017-06-02] MEDS: diazePAM 5 MG TABLET PO PRN ×3 (00:55→12:26)
[2017-06-02] MEDS: MAG HYDROX/AL HYDROX/SIMETH 30 ML UNIT-DOSE CUP PO PRN ×3 (00:55→20:05)
[2017-06-02] MEDS ORDERED: METHADONE HCL 10 MG TABLET (FOR DETOX USE ONLY) ONE (05:15)
[2017-06-02] MEDS ORDERED: METHADONE HCL 40 MG DISPERSABLE TABLET ONE (05:15)
[2017-06-02] MEDS: METHADONE PO SCH (05:29)
[2017-06-02] MEDS: busPIRone HCL 5 MG TABLET PO SCH ×3 (05:30→22:18)
[2017-06-02] MEDS: diazePAM 5 MG TABLET PO SCH ×2 (10:50→22:18)
[2017-06-02] MEDS: PRENATAL VITAMINS W/ FOLIC ACID TABLET (FP) PO SCH (10:50)
[2017-06-02] MEDS: NICOTINE 21 MG/24 HOURS TOPICAL PATCH TD SCH (10:50)
[2017-06-02] MEDS: buPROPion HCL 100 MG TABLET PO SCH (10:50)
--- NOTE | 2017-06-02 10:51 | PN ---
[facility] Progress Note (SOAP) Subjective: Sweating,interrupted sleep,restless. Objective: 06/02/17 10:50 Vital Signs - 8 hr 06/02/17 06/02/17 06/02/17 03:54 06:27 09:42 Temperature 97.0 F L 96.4 F L Pulse Rate 55 L 53 L Respiratory 18 16 18 Rate Blood Pressure 106/75 108/68 Laboratory Last Values WBC 5.3 K/mm3 (4.0-10.0) 05/31/17 06:10 RBC 4.78 M/mm3 (4.00-5.60) 05/31/17 06:10 Hgb 13.8 GM/dL (11.7-16.9) 05/31/17 06:10 Hct 40.9 % (35.4-49) 05/31/17 06:10 MCV 85.5 fl (80-96) 05/31/17 06:10 MCH 28.8 pg (25.7-33.7) 05/31/17 06:10 MCHC 33.7 g/dl (32.0-35.9) 05/31/17 06:10 RDW 13.9 % (11.9-15.9) 05/31/17 06:10 Plt Count 202 K/MM3 (134-434) 05/31/17 06:10 MPV 8.3 fl (7.5-11.1) D 05/31/17 06:10 Sodium 141 mmol/L (136-145) 05/31/17 06:10 Potassium 4.6 mmol/L (3.5-5.1) D 05/31/17 06:10 Chloride 104 mmol/L (98-107) 05/31/17 06:10 Carbon Dioxide 28 mmol/L (21-32) 05/31/17 06:10 Anion Gap 9 (8-16) 05/31/17 06:10 BUN 15 mg/dL (7-18) 05/31/17 06:10 Creatinine 1.0 mg/dL (0.7-1.3) D 05/31/17 06:10 Creat Clearance w eGFR > 60 (>60) 05/31/17 06:10 Random Glucose 93 mg/dL (74-106) 05/31/17 06:10 Calcium 9.0 mg/dL (8.5-10.1) 05/31/17 06:10 Total Bilirubin 0.6 mg/dL (0.2-1.0) D 05/31/17 06:10 AST 19 U/L (15-37) 05/31/17 06:10 ALT 31 U/L (12-78) 05/31/17 06:10 Alkaline Phosphatase 84 U/L (45-117) 05/31/17 06:10 Total Protein 7.1 g/dl (6.4-8.2) 05/31/17 06:10 Albumin 3.5 g/dl (3.4-5.0) 05/31/17 06:10 Urine Color Yellow 05/30/17 21:45 Urine Appearance Clear 05/30/17 21:45 Urine pH 5.0 (5.0-8.0) 05/30/17 21:45 Ur Specific [place] >= 1.030 (1.005-1.025) H 05/30/17 21:45 Urine Protein Negative (NEGATIVE) 05/30/17 21:45 Urine Glucose (UA) Negative (NEGATIVE) 05/30/17 21:45 Urine Ketones Negative (NEGATIVE) 05/30/17 21:45 Urine Blood Negative (NEGATIVE) 05/30/17 21:45 Urine Nitrite Negative (NEGATIVE) 05/30/17 21:45 Urine Bilirubin Negative (NEGATIVE) 05/30/17 21:45 Urine Urobilinogen Negative mg/dL (0.2-1.0) 05/30/17 21:45 Ur Leukocyte Esterase Trace (NEGATIVE) 05/30/17 21:45 Urine RBC <1 /hpf (0-3) 05/30/17 21:45 Urine WBC <1 /hpf (3-5) 05/30/17 21:45 Urine Mucus Rare 05/30/17 21:45 RPR Titer Nonreactive (NONREACTIVE) 05/31/17 06:10 HIV 1&2 Antibody Screen Negative 05/30/17 13:00 HIV P24 Antigen Negative 05/30/17 13:00 labs noted Assessment: 06/02/17 10:50 Withdrawal sx. Plan: Continue detox
[2017-06-02] MEDS: ZOLPIDEM TARTRATE 5 MG TABLET PO PRN (22:18)
[2017-06-02] MEDS: THIAMINE HCL 100 MG TABLET (FP) PO SCH (22:18)
[2017-06-03] MEDS ORDERED: METHADONE HCL 10 MG TABLET (FOR DETOX USE ONLY) ONE (03:47)
[2017-06-03] MEDS ORDERED: METHADONE HCL 40 MG DISPERSABLE TABLET ONE (03:49)
[2017-06-03] MEDS: busPIRone HCL 5 MG TABLET PO SCH ×2 (05:34→14:08)
[2017-06-03] MEDS: METHADONE PO SCH (05:34)
[2017-06-03] MEDS: MAG HYDROX/AL HYDROX/SIMETH 30 ML UNIT-DOSE CUP PO PRN ×2 (05:36→12:53)
[2017-06-03 09:42] VITALS: BP 103/77; PULSE 59; TEMP 98.7
[2017-06-03] MEDS ORDERED: diazePAM 5 MG TABLET PO SCH (10:00)
[2017-06-03] MEDS: PRENATAL VITAMINS W/ FOLIC ACID TABLET (FP) PO SCH (10:24)
[2017-06-03] MEDS: buPROPion HCL 100 MG TABLET PO SCH (10:24)
[2017-06-03] MEDS: NICOTINE 21 MG/24 HOURS TOPICAL PATCH TD SCH (10:25)
--- NOTE | 2017-06-03 11:28 | PN ---
S Progress Note (SOAP) Subjective: ALERT O X 3. NAD. DETOX PROCEEDING WELL. PT AWAITS REFERRAL TO AFTERCARE. Objective: 06/03/17 11:27 Vital Signs Temperature 98.7 F 06/03/17 09:41 Pulse Rate 59 L 06/03/17 09:41 Respiratory Rate 18 06/03/17 09:41 Blood Pressure 103/77 06/03/17 09:41 O2 Sat by Pulse Oximetry (%) Laboratory Last Values WBC 5.3 K/mm3 (4.0-10.0) 05/31/17 06:10 RBC 4.78 M/mm3 (4.00-5.60) 05/31/17 06:10 Hgb 13.8 GM/dL (11.7-16.9) 05/31/17 06:10 Hct 40.9 % (35.4-49) 05/31/17 06:10 MCV 85.5 fl (80-96) 05/31/17 06:10 MCH 28.8 pg (25.7-33.7) 05/31/17 06:10 MCHC 33.7 g/dl (32.0-35.9) 05/31/17 06:10 RDW 13.9 % (11.9-15.9) 05/31/17 06:10 Plt Count 202 K/MM3 (134-434) 05/31/17 06:10 MPV 8.3 fl (7.5-11.1) D 05/31/17 06:10 Sodium 141 mmol/L (136-145) 05/31/17 06:10 Potassium 4.6 mmol/L (3.5-5.1) D 05/31/17 06:10 Chloride 104 mmol/L (98-107) 05/31/17 06:10 Carbon Dioxide 28 mmol/L (21-32) 05/31/17 06:10 Anion Gap 9 (8-16) 05/31/17 06:10 BUN 15 mg/dL (7-18) 05/31/17 06:10 Creatinine 1.0 mg/dL (0.7-1.3) D 05/31/17 06:10 Creat Clearance w eGFR > 60 (>60) 05/31/17 06:10 Random Glucose 93 mg/dL (74-106) 05/31/17 06:10 Calcium 9.0 mg/dL (8.5-10.1) 05/31/17 06:10 Total Bilirubin 0.6 mg/dL (0.2-1.0) D 05/31/17 06:10 AST 19 U/L (15-37) 05/31/17 06:10 ALT 31 U/L (12-78) 05/31/17 06:10 Alkaline Phosphatase 84 U/L (45-117) 05/31/17 06:10 Total Protein 7.1 g/dl (6.4-8.2) 05/31/17 06:10 Albumin 3.5 g/dl (3.4-5.0) 05/31/17 06:10 Urine Color Yellow 05/30/17 21:45 Urine Appearance Clear 05/30/17 21:45 Urine pH 5.0 (5.0-8.0) 05/30/17 21:45 Ur Specific [place] >= 1.030 (1.005-1.025) H 05/30/17 21:45 Urine Protein Negative (NEGATIVE) 05/30/17 21:45 Urine Glucose (UA) Negative (NEGATIVE) 05/30/17 21:45 Urine Ketones Negative (NEGATIVE) 05/30/17 21:45 Urine Blood Negative (NEGATIVE) 05/30/17 21:45 Urine Nitrite Negative (NEGATIVE) 05/30/17 21:45 Urine Bilirubin Negative (NEGATIVE) 05/30/17 21:45 Urine Urobilinogen Negative mg/dL (0.2-1.0) 05/30/17 21:45 Ur Leukocyte Esterase Trace (NEGATIVE) 05/30/17 21:45 Urine RBC <1 /hpf (0-3) 05/30/17 21:45 Urine WBC <1 /hpf (3-5) 05/30/17 21:45 Urine Mucus Rare 05/30/17 21:45 RPR Titer Nonreactive (NONREACTIVE) 05/31/17 06:10 HIV 1&2 Antibody Screen Negative 05/30/17 13:00 HIV P24 Antigen Negative 05/30/17 13:00 Assessment: 06/03/17 11:28 WITHDRAWAL SX Plan: CONTINUE DETOX INCREASE PO FLUIDS
--- NOTE | 2017-06-04 11:35 | DS ---
[facility] Detox Discharge Summary Admission Date: 05/30/17 Discharge Date: 06/03/17 - History Present History: Alcohol Dependence, Cocaine Dependence, Sedative Dependence, MMTP Additional Comments: DETOX COMPLETED. ALERT O X 3. NAD. PT TO F/U AT [facility]. Pertinent Past History: ASTHMA COPD BLIND LEFT EYE LOWER BACK PAIN - Physical Exam Results Vital Signs: Vital Signs Temperature 98.7 F 06/03/17 09:41 Pulse Rate 59 L 06/03/17 09:41 Respiratory Rate 18 06/03/17 09:41 Blood Pressure 103/77 06/03/17 09:41 O2 Sat by Pulse Oximetry (%) Pertinent Admission Physical Exam Findings: WITHDRAWAL SX Laboratory Last Values WBC 5.3 K/mm3 (4.0-10.0) 05/31/17 06:10 RBC 4.78 M/mm3 (4.00-5.60) 05/31/17 06:10 Hgb 13.8 GM/dL (11.7-16.9) 05/31/17 06:10 Hct 40.9 % (35.4-49) 05/31/17 06:10 MCV 85.5 fl (80-96) 05/31/17 06:10 MCH 28.8 pg (25.7-33.7) 05/31/17 06:10 MCHC 33.7 g/dl (32.0-35.9) 05/31/17 06:10 RDW 13.9 % (11.9-15.9) 05/31/17 06:10 Plt Count 202 K/MM3 (134-434) 05/31/17 06:10 MPV 8.3 fl (7.5-11.1) D 05/31/17 06:10 Sodium 141 mmol/L (136-145) 05/31/17 06:10 Potassium 4.6 mmol/L (3.5-5.1) D 05/31/17 06:10 Chloride 104 mmol/L (98-107) 05/31/17 06:10 Carbon Dioxide 28 mmol/L (21-32) 05/31/17 06:10 Anion Gap 9 (8-16) 05/31/17 06:10 BUN 15 mg/dL (7-18) 05/31/17 06:10 Creatinine 1.0 mg/dL (0.7-1.3) D 05/31/17 06:10 Creat Clearance w eGFR > 60 (>60) 05/31/17 06:10 Random Glucose 93 mg/dL (74-106) 05/31/17 06:10 Calcium 9.0 mg/dL (8.5-10.1) 05/31/17 06:10 Total Bilirubin 0.6 mg/dL (0.2-1.0) D 05/31/17 06:10 AST 19 U/L (15-37) 05/31/17 06:10 ALT 31 U/L (12-78) 05/31/17 06:10 Alkaline Phosphatase 84 U/L (45-117) 05/31/17 06:10 Total Protein 7.1 g/dl (6.4-8.2) 05/31/17 06:10 Albumin 3.5 g/dl (3.4-5.0) 05/31/17 06:10 Urine Color Yellow 05/30/17 21:45 Urine Appearance Clear 05/30/17 21:45 Urine pH 5.0 (5.0-8.0) 05/30/17 21:45 Ur Specific [place] >= 1.030 (1.005-1.025) H 05/30/17 21:45 Urine Protein Negative (NEGATIVE) 05/30/17 21:45 Urine Glucose (UA) Negative (NEGATIVE) 05/30/17 21:45 Urine Ketones Negative (NEGATIVE) 05/30/17 21:45 Urine Blood Negative (NEGATIVE) 05/30/17 21:45 Urine Nitrite Negative (NEGATIVE) 05/30/17 21:45 Urine Bilirubin Negative (NEGATIVE) 05/30/17 21:45 Urine Urobilinogen Negative mg/dL (0.2-1.0) 05/30/17 21:45 Ur Leukocyte Esterase Trace (NEGATIVE) 05/30/17 21:45 Urine RBC <1 /hpf (0-3) 05/30/17 21:45 Urine WBC <1 /hpf (3-5) 05/30/17 21:45 Urine Mucus Rare 05/30/17 21:45 RPR Titer Nonreactive (NONREACTIVE) 05/31/17 06:10 HIV 1&2 Antibody Screen Negative 05/30/17 13:00 HIV P24 Antigen Negative 05/30/17 13:00 - Treatment Hospital Course: Detox Protocol Followed, Detoxed Safely, Responded well, Discharged Condition Good, Rehab Referral Accepted Patient has Accepted a Rehab Referral to: [facility] - Medication Discharge Medications: Ambulatory Orders Albuterol Sulfate Inhaler - [Ventolin HFA Inhaler -] 2 inh PO Q4H PRN 02/10/17 Bupropion HCl [Wellbutrin -] 100 mg PO DAILY #30 tablet 05/31/17 Buspirone HCl [Buspar -] 5 mg PO TID #60 tablet 05/31/17 - Diagnosis (1) Alcohol dependence with uncomplicated withdrawal Status: Acute (2) Cocaine dependence, uncomplicated Status: Acute (3) Nicotine dependence Status: Acute Qualifiers: Nicotine product type: cigarettes Substance use status: in withdrawal Qualified Code(s): F17.213 - Nicotine dependence, cigarettes, with withdrawal (4) COPD (chronic obstructive pulmonary disease) Status: Chronic Qualifiers: COPD type: COPD with acute exacerbation Qualified Code(s): J44.1 - Chronic obstructive pulmonary disease with (acute) exacerbation (5) Methadone maintenance therapy patient Status: Chronic (6) Sedative, hypnotic or anxiolytic dependence with withdrawal, uncomplicated Status: Acute (7) Asthma Status: Chronic Qualifiers: Asthma severity: mild intermittent (8) Blindness of left eye Status: Chronic - AMA Did Patient Leave Against Medical Advice: No
== END 2017-06-03 14:09 | disposition home or self-care (01) | DRG 773 ==
LOC: YASAS 12:40 → Y3N 16:15
PROVIDERS: ADMIT Internal Medicine; ATTEND Internal Medicine
PROC: HZ2ZZZZ Detoxification Services for Substance Abuse Treatment (ICD-10-PCS; principal; 2017-06-03)
DX: F11.23 Opioid dependence with withdrawal (principal); F13.230 Sedative, hypnotic or anxiolytic dependence with withdrawal, uncomplicated; F10.230 Alcohol dependence with withdrawal, uncomplicated; F14.20 Cocaine dependence, uncomplicated; F17.213 Nicotine dependence, cigarettes, with withdrawal; F16.10 Hallucinogen abuse, uncomplicated; F19.24 Other psychoactive substance dependence with psychoactive substance-induced mood disorder; F41.1 Generalized anxiety disorder; M54.5 Low back pain; G89.29 Other chronic pain; J45.20 Mild intermittent asthma, uncomplicated; J44.1 Chronic obstructive pulmonary disease with (acute) exacerbation; Z59.0 Homelessness
CPT/HCPCS: 36415; 80053; 81003; 81015; 85027; 86593; 87389; 93005; 93010

== ENCOUNTER 2017-11-10 10:49 | Inpatient (IN) | payer OTHER ==
[2017-11-10 12:02] VITALS: BMI 33.1
--- NOTE | 2017-11-10 16:25 | HP ---
CIWA Score - CIWA Score Nausea/Vomitin (N/V/D) Muscle Tremors: 3 Anxiety: 4-Mod. Anxious/Guarded Agitation: 4-Moderately Restless Paroxysmal Sweats: No Perspiration Orientation: 0-Oriented Tacttile Disturbances: 3-Moderate Itch/Numb/Burn Auditory Disturbances: 0-None Visual Disturbances: 0-None Headache: 0-None Present CIWA-Ar Total Score: 19 Admission ROS S - HPI Chief Complaint: WITHDRAWAL SX FROM XANAX Allergies/Adverse Reactions: Allergies Allergy/AdvReac Type Severity Reaction Status Date / Time No Known Allergies Allergy Verified 11/10/17 12:08 History of Present Illness: 41 Y/O H/MALE WITH A HX OF KLONOPIN AND XANAX SEEKING DETOX TX. PT [facility]. LAST DOSE TODAY. Exam Limitations: No Limitations - Ebola screening Have you traveled outside of the country in the last 21 days: No (N) Have you had contact with anyone from an Ebola affected area: No Have you been sick,other than usual withdrawal symptoms: No Do you have a fever: No - Review of Systems Constitutional: Chills, Night Sweats, Changes in sleep EENT: reports: Blurred Vision, Tearing, Nose Congestion, Dental Problems ( MISSING TEETH), Other (EFT EYE BLINDNESS DUE TO TRUAMA) Respiratory: reports: Shortness of Breath (HX ASTHMA AND COPD), Wheezing Cardiac: reports: Lightheadedness GI: reports: Constipated (OIC), Diarrhea, Nausea, Poor Fluid Intake, Vomiting : reports: No Symptoms Reported Musculoskeletal: reports: Back Pain, Joint Pain, Muscle Pain Integumentary: reports: Dryness, Rash (FOOT RASH--DRY, ITCHY AND SCALY) Neuro: reports: Headache, Tremors, Dizziness Endocrine: reports: No Symptoms Reported Hematology: reports: No Symptoms Reported Psychiatric: reports: Orientated x3, Anxious, Depressed Other Systems: Reviewed and Negative Patient History - Patient Medical History Hx Anemia: No Hx Asthma: Yes (Pt is on MDi) Hx Chronic Obstructive Pulmonary Disease (COPD): Yes Hx Cancer: No Hx Cardiac Disorders: No Hx Congestive Heart Failure: No Hx Hypertension: No Hx Hypercholesterolemia: No Hx Pacemaker: No HX Cerebrovascular Accident: No Hx Seizures: No Hx Dementia: No Hx Diabetes: No Hx Gastrointestinal Disorders: No Hx Liver Disease: No Hx Genitourinary Disorders: No Hx Sexually Transmitted Disorders: No (DENIES) Hx Renal Disease (ESRD): No Hx Thyroid Disease: No Hx Human Immunodeficiency Virus (HIV): No (DENIES. PT STATES HE IS NEGATIVE.) Hx Hepatitis C: No Hx Depression: Yes (ON MED) Hx Suicide Attempt: Yes (Tried to overdose 21 yrs ago.DENIES CURRENT S/H/I) Hx Bipolar Disorder: No Hx Schizophrenia: No - Patient Surgical History Past Surgical History: Yes Hx Neurologic Surgery: No Hx Cataract Extraction: No Hx Cardiac Surgery: No Hx Lung Surgery: No Hx Breast Surgery: No Hx Breast Biopsy: No Hx Abdominal Surgery: No Hx Appendectomy: No Hx Cholecystectomy: No Hx Genitourinary Surgery: No Hx Orthopedic Surgery: Yes (CLUB FEET REPAIR 12SX TO BLE starting from infant.) Other Surgical History: L eye corneal transplant.blindness 20 years ago. Anesthesia Reaction: No - PPD History Previous Implant?: Yes Documented Results: Negative w/proof Implanted On Prior [facility] Admission?: Yes Date: 02/12/17 Results: 0 mm PPD to be Administered?: No - Reproductive History Patient is a Female of Child Bearing Age (11 -55 yrs old): No (MALE) - Smoking Cessation Smoking history: Current every day smoker Have you smoked in the past 12 months: Yes Aproximately how many cigarettes per day: 10 Cigars Per Day: 0 Hx Chewing Tobacco Use: No Initiated information on smoking cessation: Yes 'Breaking Loose' booklet given: 11/10/17 - Substance & Tx. History Hx Alcohol Use: Yes (MALT LIQUOR ONCE IN A WHILE) Hx Substance Use: Yes (KLONOPON/XANAX/MARIJUANA) Substance Use Type: Alcohol (ON/OFF), Marijuana, Tranquilizers Hx Substance Use Treatment: Yes - Substances Abused Benzodiazepine (Klonopin) Route: Oral Frequency: Daily Amount used: 6-8MG Age of first use: 18 Date of Last Use: 11/10/17 Marijuana/Hashish Route: Smoking Frequency: Daily Amount used: 1-2 JOINTS Age of first use: 12 Date of Last Use: 11/10/17 XANAX Route: Oral Frequency: 1-2 times per week Amount used: 4-6MG Age of first use: 18 Date of Last Use: 10/27/17 Family Disease History - Family Disease History Family Disease History: Other: Mother ( MVA), Brother (DRUG ABUSE) Admission Physical Exam [facility] - Vital Signs Vital Signs: Vital Signs - 24 hr 11/10/17 11:53 Temperature 96.2 F L Pulse Rate 81 Respiratory 20 Rate Blood Pressure 112/63 - Physical General Appearance: Yes: Moderate Distress, Irritable, Anxious HEENTM: Yes: EOMI, Normocephalic, IRWIN (RIGHT EYE. 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 NML intact, Fully Oriented, Alert Integumentary: Yes: Dry, Warm Lymphatic: Yes: Within Normal Limits - Diagnostic (1) Nicotine dependence Current Visit: Yes Status: Acute Qualifiers: Nicotine product type: cigarettes Substance use status: in withdrawal Qualified Code(s): F17.213 - Nicotine dependence, cigarettes, with withdrawal (2) Sedative, hypnotic or anxiolytic dependence with withdrawal, uncomplicated Current Visit: Yes Status: Acute (3) Asthma Current Visit: Yes Status: Chronic Qualifiers: Asthma severity: mild intermittent (4) Blindness of left eye Current Visit: Yes Status: Chronic (5) COPD (chronic obstructive pulmonary disease) Current Visit: Yes Status: Chronic Qualifiers: COPD type: COPD with acute exacerbation Qualified Code(s): J44.1 - Chronic obstructive pulmonary disease with (acute) exacerbation (6) Low back pain Current Visit: Yes Status: Chronic Qualifiers: Chronicity: chronic (7) Methadone maintenance therapy patient Current Visit: Yes Status: Chronic Cleared for Admission [facility] - Detox or Rehab [facility] Level of Care: Medically Managed Detox Regimen/Protocol: Valium [facility] Breath Alcohol Content Breath Alcohol Content: 0 Urine Drug Screen - Results Drug Screen Negative: No Urine Drug Screen Results: THC-Marijuana, OPI-Opiates, AMP-Amphetamines, BZO- Benzodiazepines, MTD-Methadone
[2017-11-10] MEDS ORDERED: MAGNESIUM HYDROX 2400MG/30ML ORAL SUSPENSION 30 ML CUP PO PRN (16:37)
[2017-11-10] MEDS ORDERED: ACETAMINOPHEN 325 MG TABLET (FP) PO PRN (16:37)
[2017-11-10] MEDS ORDERED: guaiFENesin/D-METHORPHAN HB 10 ML UNIT-DOSE CUPS PO PRN (16:37)
[2017-11-10] MEDS ORDERED: LOPERAMIDE HCL 2 MG CAPSULE PO PRN (16:37)
[2017-11-10] MEDS ORDERED: MENTHOL/PHENOL 1 EACH UD MM PRN (16:37)
[2017-11-10] MEDS ORDERED: MAGNESIUM CITRATE 300 ML BOTTLE PO PRN (16:37)
[2017-11-10] MEDS ORDERED: P-EPHED 60MG/TRIPROLIDI 2.5MG TABLET PO PRN (16:37)
[2017-11-10] MEDS ORDERED: diazePAM 5 MG TABLET PO ONE (17:45)
[2017-11-10] MEDS ORDERED: ALBUTEROL SO4 18 GM HFA INHALER IH PRN (17:46)
[2017-11-10] MEDS: NICOTINE 14 MG/24 HOURS TOPICAL PATCH TD SCH (18:23)
[2017-11-10] MEDS: diazePAM 5 MG TABLET PO SCH (22:22)
[2017-11-10] MEDS: THIAMINE HCL 100 MG TABLET (FP) PO SCH (22:22)
[2017-11-10 23:36] LABS: URINE APPEARANCE CLEAR; URINE BILIRUBIN NEGATIVE (NEGATIVE); URINE BLOOD NEGATIVE (NEGATIVE); URINE COLOR YELLOW; URINE GLUCOSE (UA) NEGATIVE (NEGATIVE); URINE KETONE NEGATIVE (NEGATIVE); URINE LEUK ESTERASE TRACE (NEGATIVE); URINE NITRITE NEGATIVE (NEGATIVE); URINE PROTEIN NEGATIVE (NEGATIVE); URINE UROBILINOGEN NEGATIVE mg/dL (0.2-1.0)
[2017-11-10 23:52] LABS: CALCIUM OXALATE CRYSTALS RARE /hpf (NONE SEEN); URINE MUCUS RARE
[2017-11-11] MEDS: diazePAM 5 MG TABLET PO PRN ×5 (03:09→20:42)
[2017-11-11] MEDS ORDERED: METHADONE HCL 10 MG TABLET ONE (04:14)
[2017-11-11] MEDS ORDERED: METHADONE HCL 40 MG DISPERSABLE TABLET ONE (04:14)
[2017-11-11] MEDS: IBUPROFEN 400 MG TABLET (FP) PO PRN ×2 (04:20→10:34)
[2017-11-11] MEDS: METHADONE 120 MG, METHADONE 30 MG PO SCH (05:26)
[2017-11-11] MEDS: diazePAM 5 MG TABLET PO SCH ×3 (05:26→22:26)
[2017-11-11] MEDS ORDERED: METHADONE HCL 10 MG TABLET PO SCH (06:00)
[2017-11-11 10:10] LABS: CHLORIDE 107 mmol/L (98-107); POTASSIUM 4.5 mmol/L (3.5-5.1); SODIUM 141 mmol/L (136-145)
[2017-11-11 10:25] LABS: ALK PHOS 91 U/L (45-117); ANION GAP 8 (8-16); BILIRUBIN,TOTAL 0.5 mg/dL (0.2-1.0); BLOOD UREA NITROGEN 16 mg/dL (7-18); CALCIUM 8.4 mg/dL (8.5-10.1); CO2 26 mmol/L (21-32); CREATININE 0.9 mg/dL (0.7-1.3); GLUCOSE,RANDOM 89 mg/dL (74-106); HEMATOCRIT 42.7 % (35.4-49); MCH 27.7 pg (25.7-33.7); MCHC 32.8 g/dl (32.0-35.9); MEAN CELL VOLUME 84.2 fl (80-96); MEAN PLT VOLUME 7.9 fl (7.5-11.1); PLATELET COUNT 243 K/MM3 (134-434); RBC 5.07 M/mm3 (4.00-5.60); RDW 13.8 % (11.9-15.9); SGOT/AST 13 U/L (15-37); SGPT/ALT 36 U/L (12-78); TOT PROT 7.6 g/dl (6.4-8.2); WHITE BLOOD COUNT 8.3 K/mm3 (4.0-10.0)
[2017-11-11] MEDS: PRENATAL VITAMINS W/ FOLIC ACID TABLET (FP) PO SCH (10:33)
[2017-11-11] MEDS: NICOTINE 14 MG/24 HOURS TOPICAL PATCH TD SCH (10:33)
[2017-11-11] MEDS ORDERED: MINERAL OIL/PETROLAT/WATER TOPICAL CREAM 113 GM JAR TP PRN (11:25)
--- NOTE | 2017-11-11 11:55 | PN ---
[facility] CIWA - CIWA Score Nausea/Vomitin-No Nausea/No Vomiting Muscle Tremors: 3 Anxiety: 4-Mod. Anxious/Guarded Agitation: 3 Paroxysmal Sweats: 3 Orientation: 0-Oriented Tacttile Disturbances: 2-Mild Itch/Numbness/Burn Auditory Disturbances: 1-Very Mild Visual Disturbances: 2-Mild Sensitivity Headache: 0-None Present CIWA-Ar Total Score: 18 BHS Progress Note (SOAP) Subjective: Sweating, Anxious, Body Aches, Interrupted Sleep, Tremors. Objective: PT. A & O X 3, OBSERVED AMBULATING ON UNIT. NO ACUTE DISTRESS. 11/11/17 11:55 Vital Signs Temperature 97.9 F 11/11/17 09:03 Pulse Rate 58 L 11/11/17 09:03 Respiratory Rate 18 11/11/17 09:03 Blood Pressure 114/75 11/11/17 09:03 O2 Sat by Pulse Oximetry (%) Laboratory Tests 11/10/17 11/11/17 11/11/17 Unknown 06:00 06:00 WBC 8.3 D RBC 5.07 Hgb 14.0 Hct 42.7 MCV 84.2 MCH 27.7 MCHC 32.8 RDW 13.8 Plt Count 243 D MPV 7.9 Sodium 141 Potassium 4.5 Chloride 107 Carbon Dioxide 26 Anion Gap 8 BUN 16 Creatinine 0.9 Creat Clearance w eGFR > 60 Random Glucose 89 Calcium 8.4 L Total Bilirubin 0.5 AST 13 L D ALT 36 Alkaline Phosphatase 91 Total Protein 7.6 Albumin 4.0 Urine Color Yellow Urine Appearance Clear Urine pH 5.0 Ur Specific [place] 1.017 Urine Protein Negative Urine Glucose (UA) Negative Urine Ketones Negative Urine Blood Negative Urine Nitrite Negative Urine Bilirubin Negative Urine Urobilinogen Negative Ur Leukocyte Esterase Trace Urine WBC (Auto) None Urine RBC (Auto) 5 Calcium Oxalate Crystal Rare Urine Mucus Rare LABS NOTED. RPR RESULT PENDING. 11/11/17 11:57 Assessment: 11/11/17 11:56 WITHDRAWAL SYMPTOMS. Plan: CONTINUE DETOX. PRN FLEXERIL FOR BODY ACHES / MUSCLE SPASMS. INCREASE DAILY PO FLUID INTAKE.
--- NOTE | 2017-11-11 12:06 | CONSULT ---
[facility] Psychiatric Consult - Data Date of interview: 11/11/17 Admission source: [facility] Identifying data: Another admission to [facility] for this 42 y/o male seeking detox treatment on 3 for opioid,cocaine,xanax,marihuana and alcohol dependence.Patient is single,a father of one,homeless,unemployed and supported on food stamps. Substance Abuse History: Smoking history: Current every day smoker. Have you smoked in the past 12 months: Yes. Aproximately how many cigarettes per day: 10. Cigars Per Day: 0. Hx Chewing Tobacco Use: No. Initiated information on smoking cessation: Yes. 'Breaking Loose' booklet given: 11/10/17. - Substance & Tx. History. Hx Alcohol Use: Yes (MALT LIQUOR ONCE IN A WHILE). Hx Substance Use: Yes (KLONOPON/XANAX/MARIJUANA). Substance Use Type: Alcohol (ON/ OFF), Marijuana, Tranquilizers. Hx Substance Use Treatment: Yes. - Substances Abused. Benzodiazepine (Klonopin). Route: Oral. Frequency: Daily. Amount used: 6-8MG. Age of first use: 18. Date of Last Use: 11/10/17. Marijuana/ Hashish. Route: Smoking. Frequency: Daily. Amount used: 1-2 JOINTS. Age of first use: 12. Date of Last Use: 11/10/17. XANAX. Route: Oral. Frequency : 1-2 times per week. Amount used: 4-6MG. Age of first use: 18. Date of Last Use: 10/27/17 Medical History: Bronchial asthma,lower back pain,left eye blindness (eye trauma at age 21 / corneal transplant),COPD and orthosurgery for club foot. Psychiatric History: In this interview,the patient admits to a history of two psychiatric hospitalizations ([facility]).Diagnosed with MDD and Anxiety Disorder.Medicated with buropion SR 200 mg/day + buspar 10 mg po tid + abilify 5 mg/hs.Last taken two days ago as per self-report.Mr Moseley denies history of suicide attempts.Currently on methadone maintenance (150 mg/day) at the [facility] in [facility]. Physical/Sexual Abuse/Trauma History: Patient denies. Additional Comment: Urine Drug Screen Results: THC-Marijuana, OPI-Opiates, AMP- Amphetamines, BZO-Benzodiazepines, MTD-Methadone.Noted. Mental Status Exam - Mental Status Exam Alert and Oriented to: Time, Place, Person Cognitive Function: Good Patient Appearance: Well Groomed (tattoos on neck ,forearms) Mood: Hopeful, Euthymic Affect: Appropriate, Normal Range Patient Behavior: Appropriate, Cooperative Speech Pattern: Clear, Appropriate Voice Loudness: Normal Thought Process: Goal Oriented Thought Disorder: Not Present Hallucinations: Denies Suicidal Ideation: Denies Homicidal Ideation: Denies Insight/Judgement: Poor Sleep: Well Appetite: Good Muscle strength/Tone: Normal Gait/Station: Normal Psychiatric Findings - Problem List ([place] 1, 2,3) (1) Sedative, hypnotic or anxiolytic dependence with withdrawal, uncomplicated Current Visit: Yes Status: Acute (2) Opioid dependence with withdrawal Current Visit: Yes Status: Acute (3) Opioid dependence on agonist therapy Current Visit: Yes Status: Acute (4) Substance induced mood disorder Current Visit: Yes Status: Acute (5) Marihuana dependence Current Visit: Yes Status: Acute (6) Nicotine dependence Current Visit: Yes Status: Acute Qualifiers: Nicotine product type: cigarettes Substance use status: in withdrawal Qualified Code(s): F17.213 - Nicotine dependence, cigarettes, with withdrawal (7) TUNG (generalized anxiety disorder) Current Visit: Yes Status: Chronic Comment: Self-report.On medications. - Initial Treatment Plan Initial Treatment Plan: Previous records revisited.Psychoeducation provided in this session.detoxification in progress.Medications : bupropion SR 200 mg po daily + buspar 10 mg po tid + abilify 5 mg po hs.Side effects/benefits of each drug are discussed with the patient.Mr Moseley has expressed his agreement with this plan of care.Observation.
[2017-11-11] MEDS: busPIRone HCL 10 MG TABLET (FP) PO SCH ×2 (13:35→22:25)
--- NOTE | 2017-11-11 14:09 | EKG ---
Test Reason : Blood Pressure : / mmHG Vent. Rate : 053 BPM Atrial Rate : 053 BPM P-R Int : 156 ms QRS Dur : 108 ms QT Int : 440 ms P-R-T Axes : 048 052 054 degrees QTc Int : 412 ms SINUS BRADYCARDIA OTHERWISE NORMAL ECG WHEN COMPARED WITH ECG OF 30-MAY-2017 16:13, INCOMPLETE RIGHT BUNDLE BRANCH BLOCK IS NO LONGER PRESENT Confirmed by MD Zhang, Yan ([id number]) on 11/11/2017 2:09:33 PM Referred By: FREDRICK Confirmed By:Yan Holcomb MD
[2017-11-11] MEDS: ARIPiprazole 5 MG TABLET (FP) PO SCH (22:25)
[2017-11-11] MEDS: THIAMINE HCL 100 MG TABLET (FP) PO SCH (22:25)
[2017-11-12] MEDS ORDERED: METHADONE HCL 10 MG TABLET ONE (03:55)
[2017-11-12] MEDS ORDERED: METHADONE HCL 40 MG DISPERSABLE TABLET ONE (03:55)
[2017-11-12] MEDS: diazePAM 5 MG TABLET PO PRN ×3 (05:20→18:38)
[2017-11-12] MEDS: busPIRone HCL 10 MG TABLET (FP) PO SCH ×3 (05:20→22:24)
[2017-11-12] MEDS: METHADONE 120 MG, METHADONE 30 MG PO SCH (05:20)
[2017-11-12] MEDS: CYCLOBENZAPRINE HCL 10 MG TABLET (FP) PO PRN (07:09)
[2017-11-12] MEDS: MAG HYDROX/AL HYDROX/SIMETH 30 ML UNIT-DOSE CUP PO PRN ×2 (07:10→22:26)
[2017-11-12] MEDS: IBUPROFEN 600 MG TABLET (FP) PO PRN (07:10)
[2017-11-12] MEDS ORDERED: diphenhydrAMINE HCL 50 MG CAPSULE PO PRN (10:00)
[2017-11-12] MEDS: NICOTINE 14 MG/24 HOURS TOPICAL PATCH TD SCH (10:42)
[2017-11-12] MEDS: diazePAM 5 MG TABLET PO SCH ×2 (10:42→22:24)
[2017-11-12] MEDS: PRENATAL VITAMINS W/ FOLIC ACID TABLET (FP) PO SCH (10:42)
[2017-11-12] MEDS: RANITIDINE HCL 150 MG TABLET (FP) PO SCH (10:43)
--- NOTE | 2017-11-12 14:32 | PN ---
S CIWA - CIWA Score Nausea/Vomitin Muscle Tremors: None Anxiety: 4-Mod. Anxious/Guarded Agitation: 3 Paroxysmal Sweats: 3 Orientation: 0-Oriented Tacttile Disturbances: 2-Mild Itch/Numbness/Burn Auditory Disturbances: 1-Very Mild Visual Disturbances: 0-None Headache: 0-None Present CIWA-Ar Total Score: 16 BHS Progress Note (SOAP) Subjective: Sweating, Stomach Cramping, Indigestion, Interrupted Sleep. Objective: PT. A & O X 3, OBSERVED AMBULATING ON UNIT. NO ACUTE DISTRESS. 11/12/17 14:29 Vital Signs Temperature 98.3 F 11/12/17 13:30 Pulse Rate 55 L 11/12/17 13:30 Respiratory Rate 20 11/12/17 13:30 Blood Pressure 116/76 11/12/17 13:30 O2 Sat by Pulse Oximetry (%) Laboratory Tests 11/10/17 11/11/17 11/11/17 Unknown 06:00 06:00 WBC 8.3 D RBC 5.07 Hgb 14.0 Hct 42.7 MCV 84.2 MCH 27.7 MCHC 32.8 RDW 13.8 Plt Count 243 D MPV 7.9 Sodium 141 Potassium 4.5 Chloride 107 Carbon Dioxide 26 Anion Gap 8 BUN 16 Creatinine 0.9 Creat Clearance w eGFR > 60 Random Glucose 89 Calcium 8.4 L Total Bilirubin 0.5 AST 13 L D ALT 36 Alkaline Phosphatase 91 Total Protein 7.6 Albumin 4.0 Urine Color Yellow Urine Appearance Clear Urine pH 5.0 Ur Specific [place] 1.017 Urine Protein Negative Urine Glucose (UA) Negative Urine Ketones Negative Urine Blood Negative Urine Nitrite Negative Urine Bilirubin Negative Urine Urobilinogen Negative Ur Leukocyte Esterase Trace Urine WBC (Auto) None Urine RBC (Auto) 5 Calcium Oxalate Crystal Rare Urine Mucus Rare RPR Titer 11/11/17 06:00 WBC RBC Hgb Hct MCV MCH MCHC RDW Plt Count MPV Sodium Potassium Chloride Carbon Dioxide Anion Gap BUN Creatinine Creat Clearance w eGFR Random Glucose Calcium Total Bilirubin AST ALT Alkaline Phosphatase Total Protein Albumin Urine Color Urine Appearance Urine pH Ur Specific [place] Urine Protein Urine Glucose (UA) Urine Ketones Urine Blood Urine Nitrite Urine Bilirubin Urine Urobilinogen Ur Leukocyte Esterase Urine WBC (Auto) Urine RBC (Auto) Calcium Oxalate Crystal Urine Mucus RPR Titer Nonreactive LABS NOTED. Assessment: 11/12/17 14:30 WITHDRAWAL SYMPTOMS. Plan: CONTINUE DETOX. ZANTAC, 150 MG PO DAILY FOR INDIGESTION. INCREASE DAILY PO FLUID INTAKE.
[2017-11-12] MEDS: THIAMINE HCL 100 MG TABLET (FP) PO SCH (22:24)
[2017-11-12] MEDS: ARIPiprazole 5 MG TABLET (FP) PO SCH (22:24)
[2017-11-13] MEDS: diazePAM 5 MG TABLET PO PRN ×3 (04:14→12:54)
[2017-11-13] MEDS ORDERED: METHADONE HCL 10 MG TABLET ONE (04:30)
[2017-11-13] MEDS ORDERED: METHADONE HCL 40 MG DISPERSABLE TABLET ONE (04:30)
[2017-11-13] MEDS: METHADONE 120 MG, METHADONE 30 MG PO SCH (05:30)
[2017-11-13] MEDS: busPIRone HCL 10 MG TABLET (FP) PO SCH ×3 (05:31→22:27)
[2017-11-13] MEDS: NICOTINE POLACRILEX 2 MG GUM BUC PRN ×4 (05:32→22:27)
[2017-11-13] MEDS: CYCLOBENZAPRINE HCL 10 MG TABLET (FP) PO PRN ×2 (07:04→17:08)
[2017-11-13] MEDS: IBUPROFEN 600 MG TABLET (FP) PO PRN (07:04)
[2017-11-13] MEDS: diazePAM 5 MG TABLET PO SCH ×2 (10:52→22:27)
[2017-11-13] MEDS: PRENATAL VITAMINS W/ FOLIC ACID TABLET (FP) PO SCH (10:52)
[2017-11-13] MEDS: RANITIDINE HCL 150 MG TABLET (FP) PO SCH (10:53)
[2017-11-13] MEDS: NICOTINE 14 MG/24 HOURS TOPICAL PATCH TD SCH (10:53)
--- NOTE | 2017-11-13 13:37 | PN ---
[facility] Progress Note (SOAP) Subjective: Interrupted sleep, Body Aches, Stomach Cramping, Sweating, Anxious. Objective: PT. A & O X 3, OBSERVED AMBULATING ON UNIT. NO ACUTE DISTRESS. 11/13/17 13:36 Vital Signs Temperature 96.0 F L 11/13/17 11:08 Pulse Rate 61 11/13/17 11:08 Respiratory Rate 18 11/13/17 11:08 Blood Pressure 124/74 11/13/17 11:08 O2 Sat by Pulse Oximetry (%) Laboratory Tests 11/10/17 11/11/17 11/11/17 Unknown 06:00 06:00 WBC 8.3 D RBC 5.07 Hgb 14.0 Hct 42.7 MCV 84.2 MCH 27.7 MCHC 32.8 RDW 13.8 Plt Count 243 D MPV 7.9 Sodium 141 Potassium 4.5 Chloride 107 Carbon Dioxide 26 Anion Gap 8 BUN 16 Creatinine 0.9 Creat Clearance w eGFR > 60 Random Glucose 89 Calcium 8.4 L Total Bilirubin 0.5 AST 13 L D ALT 36 Alkaline Phosphatase 91 Total Protein 7.6 Albumin 4.0 Urine Color Yellow Urine Appearance Clear Urine pH 5.0 Ur Specific [place] 1.017 Urine Protein Negative Urine Glucose (UA) Negative Urine Ketones Negative Urine Blood Negative Urine Nitrite Negative Urine Bilirubin Negative Urine Urobilinogen Negative Ur Leukocyte Esterase Trace Urine WBC (Auto) None Urine RBC (Auto) 5 Calcium Oxalate Crystal Rare Urine Mucus Rare RPR Titer 11/11/17 06:00 WBC RBC Hgb Hct MCV MCH MCHC RDW Plt Count MPV Sodium Potassium Chloride Carbon Dioxide Anion Gap BUN Creatinine Creat Clearance w eGFR Random Glucose Calcium Total Bilirubin AST ALT Alkaline Phosphatase Total Protein Albumin Urine Color Urine Appearance Urine pH Ur Specific [place] Urine Protein Urine Glucose (UA) Urine Ketones Urine Blood Urine Nitrite Urine Bilirubin Urine Urobilinogen Ur Leukocyte Esterase Urine WBC (Auto) Urine RBC (Auto) Calcium Oxalate Crystal Urine Mucus RPR Titer Nonreactive LABS NOTED. Assessment: 11/13/17 13:36 WITHDRAWAL SYMPTOMS. Plan: CONTINUE DETOX. INCREASE DAILY PO FLUID INTAKE.
[2017-11-13] MEDS: MAG HYDROX/AL HYDROX/SIMETH 30 ML UNIT-DOSE CUP PO PRN (17:08)
[2017-11-13] MEDS ORDERED: hydrOXYzine PAMOATE 50 MG CAPSULE (FP) PO PRN (21:16)
[2017-11-13] MEDS: ARIPiprazole 5 MG TABLET (FP) PO SCH (22:27)
[2017-11-13] MEDS: THIAMINE HCL 100 MG TABLET (FP) PO SCH (22:28)
[2017-11-14] MEDS ORDERED: METHADONE HCL 40 MG DISPERSABLE TABLET ONE (03:55)
[2017-11-14] MEDS ORDERED: METHADONE HCL 10 MG TABLET ONE (03:55)
[2017-11-14] MEDS: METHADONE 120 MG, METHADONE 30 MG PO SCH (05:32)
[2017-11-14] MEDS: busPIRone HCL 10 MG TABLET (FP) PO SCH (05:32)
[2017-11-14] MEDS: MAG HYDROX/AL HYDROX/SIMETH 30 ML UNIT-DOSE CUP PO PRN (07:49)
[2017-11-14 09:47] VITALS: BP 112/72; PULSE 62; TEMP 97
[2017-11-14] MEDS ORDERED: diazePAM 5 MG TABLET PO SCH (10:00)
[2017-11-14] MEDS: NICOTINE 14 MG/24 HOURS TOPICAL PATCH TD SCH (10:33)
[2017-11-14] MEDS: PRENATAL VITAMINS W/ FOLIC ACID TABLET (FP) PO SCH (10:33)
[2017-11-14] MEDS: RANITIDINE HCL 150 MG TABLET (FP) PO SCH (10:33)
[2017-11-14] MEDS: IBUPROFEN 600 MG TABLET (FP) PO PRN (10:34)
[2017-11-14] MEDS: CYCLOBENZAPRINE HCL 10 MG TABLET (FP) PO PRN (10:34)
--- NOTE | 2017-11-14 16:09 | DS ---
[facility] Detox Discharge Summary Admission Date: 11/10/17 Discharge Date: 11/14/17 - History Present History: Cannabis Dependence, Opioid Dependence, Sedative Dependence, [facility] Additional Comments: PATIENT GOING TO [facility] REHAB FOR AFTERCARE. PATIENT WAS DISCHARGED FROM DETOX UNIT TO GO TO REHAB UNIT IN STABLE MEDICAL CONDITION. Pertinent Past History: Asthma, Depression, Anxiety Disorder, Blindness of Left Eye, M[facility], Low Back Pain , Nicotine Dependence, COPD. - Physical Exam Results Vital Signs: Vital Signs Temperature 97.0 F L 11/14/17 09:46 Pulse Rate 62 11/14/17 09:46 Respiratory Rate 18 11/14/17 09:46 Blood Pressure 112/72 11/14/17 09:46 O2 Sat by Pulse Oximetry (%) Pertinent Admission Physical Exam Findings: WITHDRAWAL SYMPTOMS. Laboratory Tests 11/10/17 11/11/17 11/11/17 Unknown 06:00 06:00 WBC 8.3 D RBC 5.07 Hgb 14.0 Hct 42.7 MCV 84.2 MCH 27.7 MCHC 32.8 RDW 13.8 Plt Count 243 D MPV 7.9 Sodium 141 Potassium 4.5 Chloride 107 Carbon Dioxide 26 Anion Gap 8 BUN 16 Creatinine 0.9 Creat Clearance w eGFR > 60 Random Glucose 89 Calcium 8.4 L Total Bilirubin 0.5 AST 13 L D ALT 36 Alkaline Phosphatase 91 Total Protein 7.6 Albumin 4.0 Urine Color Yellow Urine Appearance Clear Urine pH 5.0 Ur Specific [place] 1.017 Urine Protein Negative Urine Glucose (UA) Negative Urine Ketones Negative Urine Blood Negative Urine Nitrite Negative Urine Bilirubin Negative Urine Urobilinogen Negative Ur Leukocyte Esterase Trace Urine WBC (Auto) None Urine RBC (Auto) 5 Calcium Oxalate Crystal Rare Urine Mucus Rare RPR Titer 11/11/17 06:00 WBC RBC Hgb Hct MCV MCH MCHC RDW Plt Count MPV Sodium Potassium Chloride Carbon Dioxide Anion Gap BUN Creatinine Creat Clearance w eGFR Random Glucose Calcium Total Bilirubin AST ALT Alkaline Phosphatase Total Protein Albumin Urine Color Urine Appearance Urine pH Ur Specific [place] Urine Protein Urine Glucose (UA) Urine Ketones Urine Blood Urine Nitrite Urine Bilirubin Urine Urobilinogen Ur Leukocyte Esterase Urine WBC (Auto) Urine RBC (Auto) Calcium Oxalate Crystal Urine Mucus RPR Titer Nonreactive LABS NOTED. - Treatment Hospital Course: Detox Protocol Followed, Detoxed Safely, Responded well, Discharged Condition Good, Rehab Referral Accepted Patient has Accepted a Rehab Referral to: [facility] ([facility]) . 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 (2) Nicotine dependence Status: Acute Qualifiers: Nicotine product type: cigarettes Substance use status: in withdrawal Qualified Code(s): F17.213 - Nicotine dependence, cigarettes, with withdrawal (3) Sedative, hypnotic or anxiolytic dependence with withdrawal, uncomplicated Status: Acute (4) Asthma Status: Chronic Qualifiers: Asthma severity: mild Asthma persistence: intermittent Asthma complication type: uncomplicated Qualified Code(s): J45.20 - Mild intermittent asthma, uncomplicated (5) Blindness of left eye Status: Chronic (6) COPD (chronic obstructive pulmonary disease) Status: Chronic Qualifiers: COPD type: COPD with acute exacerbation Qualified Code(s): J44.1 - Chronic obstructive pulmonary disease with (acute) exacerbation (7) Low back pain Status: Chronic Qualifiers: Chronicity: chronic Back pain laterality: unspecified Sciatica presence: unspecified whether sciatica present Qualified Code(s): M54.5 - Low back pain ; G89.29 - Other chronic pain; G89.29 - Other chronic pain (8) TUNG (generalized anxiety disorder) Status: Chronic (9) Substance induced mood disorder Status: Acute - AMA Did Patient Leave Against Medical Advice: No
== END 2017-11-14 12:05 | disposition other institution (70) | DRG 773 ==
LOC: YASAS 10:49 → Y3N 17:04
PROVIDERS: ADMIT Internal Medicine; ATTEND Internal Medicine
PROC: HZ2ZZZZ Detoxification Services for Substance Abuse Treatment (ICD-10-PCS; principal; 2017-11-10)
DX: F11.23 Opioid dependence with withdrawal (principal); F13.230 Sedative, hypnotic or anxiolytic dependence with withdrawal, uncomplicated; F12.20 Cannabis dependence, uncomplicated; F17.210 Nicotine dependence, cigarettes, uncomplicated; F19.24 Other psychoactive substance dependence with psychoactive substance-induced mood disorder; J44.9 Chronic obstructive pulmonary disease, unspecified; H54.42A3 Blindness left eye category 3, normal vision right eye; Z59.0 Homelessness
CPT/HCPCS: 36415; 80053; 81003; 81015; 85027; 86593; 93005; 93010

== ENCOUNTER 2017-11-14 12:22 | Inpatient (IN) | payer OTHER ==
--- NOTE | 2017-11-14 13:47 | HP ---
Psychiatrist Admission - Data Date of interview: 11/14/17 Admission source: 3N Identifying data: This is the second 5N inpatient rehabilitation admsision for this 42 year old male who is single,a father of one, homeless, unemployed and supported on food stamps. 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 Smokes 5-9 cigarettes a day. Psychiatric History: Patient reports two psychiatric hospitalization at age of 18 for 5 days and age 28 in [place] also for 5 days to address depressed mood and anxiety, he reports he currently on Wellbutrin 200 mg po daily, Buspar 10 mg po tid and following up with a psychiatrist at his [facility] (150 mg) at the [facility] in COUNTS INCLUDE 234 BEDS AT THE [facility]. Seen by and continued his meidcations. Physical/Sexual Abuse/Trauma History: Reporta no history of sexaul, physical and verbal abuse. Allergies/Adverse Reactions: Allergies Allergy/AdvReac Type Severity Reaction Status Date / Time No Known Allergies Allergy Verified 11/10/17 12:08 Concur with the findings of this exam: Yes - Substance Abuse/Tx History Hx Alcohol Use: Yes (liqour once in a while) Hx Substance Use: Yes Substance Use Type: Marijuana (1-2 joints 2-4 times a week), Tranquilizers ( klonopin/xanaz up to 6 mg/daily.) Hx Substance Use Treatment: Yes (several [facility] detox[facility]rehab.) Mental Status Exam - Mental Status Exam Alert and Oriented to: Time, Place, Person Cognitive Function: Grossly Intact Patient Appearance: Well Groomed Mood: Depressed, Sad, Anxious Affect: Appropriate, Mood Congruent Patient Behavior: Cooperative Speech Pattern: Clear, Appropriate Voice Loudness: Normal Thought Process: Intact, Goal Oriented Thought Disorder: Not Present Hallucinations: None Suicidal Ideation: Denies Homicidal Ideation: Denies Insight/Judgement: Fair Sleep: Fair Appetite: Fair Muscle strength/Tone: Normal Gait/Station: Normal Psychiatric Findings - Problem List ([place] 1, 2,3) (1) Benzodiazepine dependence Current Visit: Yes Status: Acute (2) MDD (major depressive disorder) Current Visit: Yes Status: Acute (3) Alcohol dependence Current Visit: No Status: Acute (4) Marihuana dependence Current Visit: No Status: Acute (5) Nicotine dependence Current Visit: No Status: Acute Qualifiers: Nicotine product type: cigarettes Substance use status: in withdrawal Qualified Code(s): F17.213 - Nicotine dependence, cigarettes, with withdrawal (6) Opioid dependence on agonist therapy Current Visit: No Status: Acute (7) Blindness of left eye Current Visit: No Status: Chronic (8) TUNG (generalized anxiety disorder) Current Visit: No Status: Chronic Comment: Self-report.On medications. - Initial Treatment Plan Initial Treatment Plan: will continue his current medications, monitor progress as needed.
[2017-11-14] MEDS ORDERED: MAGNESIUM CITRATE 300 ML BOTTLE PO PRN (14:53)
[2017-11-14] MEDS ORDERED: hydrOXYzine PAMOATE 50 MG CAPSULE (FP) PO PRN (14:53)
[2017-11-14] MEDS ORDERED: guaiFENesin/D-METHORPHAN HB 10 ML UNIT-DOSE CUPS PO PRN (14:53)
[2017-11-14] MEDS ORDERED: MAGNESIUM HYDROX 2400MG/30ML ORAL SUSPENSION 30 ML CUP PO PRN (14:53)
[2017-11-14] MEDS ORDERED: LOPERAMIDE HCL 2 MG CAPSULE PO PRN (14:53)
[2017-11-14] MEDS ORDERED: MENTHOL/PHENOL 1 EACH UD MM PRN (14:53)
[2017-11-14] MEDS ORDERED: P-EPHED 60MG/TRIPROLIDI 2.5MG TABLET PO PRN (14:53)
[2017-11-14] MEDS ORDERED: ACETAMINOPHEN 325 MG TABLET (FP) PO PRN (14:53)
--- NOTE | 2017-11-14 14:53 | HP ---
[facility] Rehab Assess/Revision - Admission History Admitted to Rehab from: [facility] Date of Admission to Rehab: 11/14/17 - Findings Detox History & Physical reviewed: Yes Concur with findings: Yes Comments/Additional Findings: FOR REHAB PROTOCOL Inpatient Rehab Admission - Initial Determination Are CD services needed?: Yes Free of communicable disease: Yes Not in need of hospitalization: Yes - Rehab Admission Criteria Previous failed treatment: Yes Poor recovery environment: Yes Comorbidities: Yes Patient is meeting Inpatient Rehab admission criteria:: Yes
[2017-11-14] MEDS: NICOTINE 21 MG/24 HOURS TOPICAL PATCH TD SCH (15:38)
[2017-11-14] MEDS: ARIPiprazole 5 MG TABLET (FP) PO SCH (21:25)
[2017-11-14] MEDS: THIAMINE HCL 100 MG TABLET (FP) PO SCH (21:25)
[2017-11-14] MEDS: busPIRone HCL 10 MG TABLET (FP) PO SCH (21:25)
[2017-11-14] MEDS: MAG HYDROX/AL HYDROX/SIMETH 30 ML UNIT-DOSE CUP PO PRN (21:27)
[2017-11-15] MEDS ORDERED: METHADONE HCL 10 MG TABLET ONE (05:46)
[2017-11-15] MEDS ORDERED: METHADONE HCL 40 MG DISPERSABLE TABLET ONE (05:47)
[2017-11-15] MEDS ORDERED: METHADONE HCL 10 MG TABLET PO SCH (06:00)
[2017-11-15] MEDS: busPIRone HCL 10 MG TABLET (FP) PO SCH ×3 (06:00→21:43)
[2017-11-15] MEDS: METHADONE 120 MG, METHADONE 30 MG PO SCH (06:00)
[2017-11-15] MEDS: NICOTINE POLACRILEX 2 MG GUM BUC PRN ×2 (07:12→18:21)
[2017-11-15] MEDS: ALBUTEROL SO4 18 GM HFA INHALER IH PRN (07:15)
[2017-11-15] MEDS: IBUPROFEN 400 MG TABLET (FP) PO PRN (09:04)
[2017-11-15] MEDS: NICOTINE 21 MG/24 HOURS TOPICAL PATCH TD SCH (09:05)
[2017-11-15] MEDS: PRENATAL VITAMINS W/ FOLIC ACID TABLET (FP) PO SCH (09:06)
[2017-11-15] MEDS: RANITIDINE HCL 150 MG TABLET (FP) PO SCH (09:06)
[2017-11-15] MEDS: buPROPion HCL 100 MG TABLET PO SCH (09:06)
[2017-11-15] MEDS: MAG HYDROX/AL HYDROX/SIMETH 30 ML UNIT-DOSE CUP PO PRN (20:08)
[2017-11-15] MEDS: ARIPiprazole 5 MG TABLET (FP) PO SCH (21:43)
[2017-11-15] MEDS: THIAMINE HCL 100 MG TABLET (FP) PO SCH (21:43)
[2017-11-16] MEDS ORDERED: METHADONE HCL 10 MG TABLET ONE (03:11)
[2017-11-16] MEDS ORDERED: METHADONE HCL 40 MG DISPERSABLE TABLET ONE (03:12)
[2017-11-16] MEDS: busPIRone HCL 10 MG TABLET (FP) PO SCH ×3 (06:32→21:42)
[2017-11-16] MEDS: METHADONE 120 MG, METHADONE 30 MG PO SCH (06:32)
[2017-11-16] MEDS: NICOTINE POLACRILEX 2 MG GUM BUC PRN ×3 (06:34→14:18)
[2017-11-16] MEDS: PRENATAL VITAMINS W/ FOLIC ACID TABLET (FP) PO SCH (10:25)
[2017-11-16] MEDS: buPROPion HCL 100 MG TABLET PO SCH (10:25)
[2017-11-16] MEDS: RANITIDINE HCL 150 MG TABLET (FP) PO SCH (10:27)
[2017-11-16] MEDS: NICOTINE 21 MG/24 HOURS TOPICAL PATCH TD SCH (10:28)
[2017-11-16] MEDS: ALBUTEROL SO4 18 GM HFA INHALER IH PRN (14:17)
[2017-11-16] MEDS: ARIPiprazole 5 MG TABLET (FP) PO SCH (21:42)
[2017-11-16] MEDS: THIAMINE HCL 100 MG TABLET (FP) PO SCH (21:42)
[2017-11-16] MEDS: MAG HYDROX/AL HYDROX/SIMETH 30 ML UNIT-DOSE CUP PO PRN (21:42)
[2017-11-17] MEDS ORDERED: METHADONE HCL 40 MG DISPERSABLE TABLET ONE (03:15)
[2017-11-17] MEDS ORDERED: METHADONE HCL 10 MG TABLET ONE (03:15)
[2017-11-17] MEDS: busPIRone HCL 10 MG TABLET (FP) PO SCH ×3 (05:53→21:25)
[2017-11-17] MEDS: METHADONE 120 MG, METHADONE 30 MG PO SCH (05:54)
[2017-11-17] MEDS: MAG HYDROX/AL HYDROX/SIMETH 30 ML UNIT-DOSE CUP PO PRN (06:43)
[2017-11-17] MEDS: NICOTINE POLACRILEX 2 MG GUM BUC PRN ×3 (06:43→14:44)
[2017-11-17] MEDS: buPROPion HCL 100 MG TABLET PO SCH (10:30)
[2017-11-17] MEDS: PRENATAL VITAMINS W/ FOLIC ACID TABLET (FP) PO SCH (10:30)
[2017-11-17] MEDS: RANITIDINE HCL 150 MG TABLET (FP) PO SCH (10:30)
[2017-11-17] MEDS: NICOTINE 21 MG/24 HOURS TOPICAL PATCH TD SCH (10:33)
[2017-11-17] MEDS: CYCLOBENZAPRINE HCL 10 MG TABLET (FP) PO SCH ×2 (14:42→21:25)
[2017-11-17] MEDS: TOLNAFTATE 1% CREAM 15 GM TUBE TP SCH ×2 (14:42→21:28)
[2017-11-17] MEDS: THIAMINE HCL 100 MG TABLET (FP) PO SCH (21:25)
[2017-11-17] MEDS: ARIPiprazole 5 MG TABLET (FP) PO SCH (21:25)
[2017-11-17] MEDS: DOCUSATE SODIUM 100 MG CAPSULE (FP) PO SCH (21:27)
[2017-11-18] MEDS ORDERED: METHADONE HCL 10 MG TABLET ONE (04:00)
[2017-11-18] MEDS ORDERED: METHADONE HCL 40 MG DISPERSABLE TABLET ONE (04:00)
[2017-11-18] MEDS: METHADONE 120 MG, METHADONE 30 MG PO SCH (05:38)
[2017-11-18] MEDS: busPIRone HCL 10 MG TABLET (FP) PO SCH ×3 (05:38→21:14)
[2017-11-18] MEDS: CYCLOBENZAPRINE HCL 10 MG TABLET (FP) PO SCH ×3 (05:38→21:14)
[2017-11-18] MEDS: NICOTINE POLACRILEX 2 MG GUM BUC PRN ×2 (05:38→14:12)
[2017-11-18] MEDS: RANITIDINE HCL 150 MG TABLET (FP) PO SCH (10:29)
[2017-11-18] MEDS: PRENATAL VITAMINS W/ FOLIC ACID TABLET (FP) PO SCH (10:29)
[2017-11-18] MEDS: buPROPion HCL 100 MG TABLET PO SCH (10:29)
[2017-11-18] MEDS: TOLNAFTATE 1% CREAM 15 GM TUBE TP SCH ×2 (10:30→21:15)
[2017-11-18] MEDS: NICOTINE 21 MG/24 HOURS TOPICAL PATCH TD SCH (10:30)
[2017-11-18] MEDS: IBUPROFEN 400 MG TABLET (FP) PO PRN (10:31)
--- NOTE | 2017-11-18 15:42 | PN ---
S Progress Note (SOAP) Subjective: c/o dry feet, was terated for athletes feet wants dry skin cream Objective: 11/18/17 15:41 Vital Signs - 24 hr 11/18/17 11/18/17 11/18/17 00:30 03:30 06:36 Temperature 97.6 F Pulse Rate 61 Respiratory 18 18 18 Rate Blood Pressure 106/73 labs reviewed, dry feet noted Assessment: 11/18/17 15:41 lachydrin for athletes foot dry feet/
[2017-11-18] MEDS: AMMONIUM LACTATE 12% LOTION 225 GM BOTTLE TP SCH (17:37)
[2017-11-18] MEDS: THIAMINE HCL 100 MG TABLET (FP) PO SCH (21:14)
[2017-11-18] MEDS: ARIPiprazole 5 MG TABLET (FP) PO SCH (21:14)
[2017-11-18] MEDS: DOCUSATE SODIUM 100 MG CAPSULE (FP) PO SCH (21:14)
[2017-11-19] MEDS ORDERED: METHADONE HCL 10 MG TABLET ONE (03:21)
[2017-11-19] MEDS ORDERED: METHADONE HCL 40 MG DISPERSABLE TABLET ONE (03:21)
[2017-11-19] MEDS: METHADONE 120 MG, METHADONE 30 MG PO SCH (06:09)
[2017-11-19] MEDS: busPIRone HCL 10 MG TABLET (FP) PO SCH ×3 (06:09→21:25)
[2017-11-19] MEDS: CYCLOBENZAPRINE HCL 10 MG TABLET (FP) PO SCH ×3 (06:09→21:25)
[2017-11-19] MEDS: NICOTINE POLACRILEX 2 MG GUM BUC PRN ×2 (06:12→14:32)
[2017-11-19] MEDS: buPROPion HCL 100 MG TABLET PO SCH (10:08)
[2017-11-19] MEDS: PRENATAL VITAMINS W/ FOLIC ACID TABLET (FP) PO SCH (10:08)
[2017-11-19] MEDS: TOLNAFTATE 1% CREAM 15 GM TUBE TP SCH ×2 (10:08→21:26)
[2017-11-19] MEDS: NICOTINE 21 MG/24 HOURS TOPICAL PATCH TD SCH (10:08)
[2017-11-19] MEDS: AMMONIUM LACTATE 12% LOTION 225 GM BOTTLE TP SCH (10:09)
[2017-11-19] MEDS: RANITIDINE HCL 150 MG TABLET (FP) PO SCH (10:09)
[2017-11-19] MEDS: DOCUSATE SODIUM 100 MG CAPSULE (FP) PO SCH (21:25)
[2017-11-19] MEDS: ARIPiprazole 5 MG TABLET (FP) PO SCH (21:25)
[2017-11-19] MEDS: THIAMINE HCL 100 MG TABLET (FP) PO SCH (21:25)
[2017-11-20] MEDS ORDERED: METHADONE HCL 10 MG TABLET ONE (03:14)
[2017-11-20] MEDS ORDERED: METHADONE HCL 40 MG DISPERSABLE TABLET ONE (03:15)
[2017-11-20] MEDS: CYCLOBENZAPRINE HCL 10 MG TABLET (FP) PO SCH ×3 (06:11→21:28)
[2017-11-20] MEDS: METHADONE 120 MG, METHADONE 30 MG PO SCH (06:11)
[2017-11-20] MEDS: busPIRone HCL 10 MG TABLET (FP) PO SCH ×3 (06:11→21:29)
[2017-11-20] MEDS: ALBUTEROL SO4 18 GM HFA INHALER IH PRN (10:05)
[2017-11-20] MEDS: buPROPion HCL 100 MG TABLET PO SCH (10:06)
[2017-11-20] MEDS: PRENATAL VITAMINS W/ FOLIC ACID TABLET (FP) PO SCH (10:06)
[2017-11-20] MEDS: AMMONIUM LACTATE 12% LOTION 225 GM BOTTLE TP SCH (10:06)
[2017-11-20] MEDS: TOLNAFTATE 1% CREAM 15 GM TUBE TP SCH ×2 (10:06→21:29)
[2017-11-20] MEDS: NICOTINE 21 MG/24 HOURS TOPICAL PATCH TD SCH (10:06)
[2017-11-20] MEDS: RANITIDINE HCL 150 MG TABLET (FP) PO SCH (10:06)
[2017-11-20] MEDS: NICOTINE POLACRILEX 2 MG GUM BUC PRN (10:08)
[2017-11-20] MEDS: DOCUSATE SODIUM 100 MG CAPSULE (FP) PO SCH (21:29)
[2017-11-20] MEDS: THIAMINE HCL 100 MG TABLET (FP) PO SCH (21:29)
[2017-11-20] MEDS: ARIPiprazole 5 MG TABLET (FP) PO SCH (21:29)
[2017-11-21] MEDS ORDERED: METHADONE HCL 10 MG TABLET ONE (03:16)
[2017-11-21] MEDS ORDERED: METHADONE HCL 40 MG DISPERSABLE TABLET ONE (03:17)
[2017-11-21] MEDS: METHADONE 120 MG, METHADONE 30 MG PO SCH (06:10)
[2017-11-21] MEDS: CYCLOBENZAPRINE HCL 10 MG TABLET (FP) PO SCH ×3 (06:11→21:22)
[2017-11-21] MEDS: busPIRone HCL 10 MG TABLET (FP) PO SCH ×3 (06:11→21:22)
[2017-11-21] MEDS: RANITIDINE HCL 150 MG TABLET (FP) PO SCH (09:59)
[2017-11-21] MEDS: TOLNAFTATE 1% CREAM 15 GM TUBE TP SCH ×2 (09:59→21:23)
[2017-11-21] MEDS: PRENATAL VITAMINS W/ FOLIC ACID TABLET (FP) PO SCH (09:59)
[2017-11-21] MEDS: buPROPion HCL 100 MG TABLET PO SCH (09:59)
[2017-11-21] MEDS: NICOTINE 21 MG/24 HOURS TOPICAL PATCH TD SCH (09:59)
[2017-11-21] MEDS: AMMONIUM LACTATE 12% LOTION 225 GM BOTTLE TP SCH (09:59)
[2017-11-21] MEDS: IBUPROFEN 400 MG TABLET (FP) PO PRN (10:00)
[2017-11-21] MEDS: NICOTINE POLACRILEX 2 MG GUM BUC PRN (14:29)
[2017-11-21] MEDS: ARIPiprazole 5 MG TABLET (FP) PO SCH (21:22)
[2017-11-21] MEDS: DOCUSATE SODIUM 100 MG CAPSULE (FP) PO SCH (21:22)
[2017-11-21] MEDS: THIAMINE HCL 100 MG TABLET (FP) PO SCH (21:22)
[2017-11-22] MEDS: busPIRone HCL 10 MG TABLET (FP) PO SCH ×3 (06:09→21:17)
[2017-11-22] MEDS ORDERED: METHADONE HCL 10 MG TABLET ONE (06:10)
[2017-11-22] MEDS ORDERED: METHADONE HCL 40 MG DISPERSABLE TABLET ONE (06:11)
[2017-11-22] MEDS: CYCLOBENZAPRINE HCL 10 MG TABLET (FP) PO SCH ×3 (06:11→21:17)
[2017-11-22] MEDS: METHADONE 120 MG, METHADONE 30 MG PO SCH (06:12)
[2017-11-22] MEDS: TOLNAFTATE 1% CREAM 15 GM TUBE TP SCH ×2 (10:11→21:52)
[2017-11-22] MEDS: NICOTINE 21 MG/24 HOURS TOPICAL PATCH TD SCH (10:11)
[2017-11-22] MEDS: PRENATAL VITAMINS W/ FOLIC ACID TABLET (FP) PO SCH (10:11)
[2017-11-22] MEDS: buPROPion HCL 100 MG TABLET PO SCH (10:11)
[2017-11-22] MEDS: RANITIDINE HCL 150 MG TABLET (FP) PO SCH (10:11)
[2017-11-22] MEDS: AMMONIUM LACTATE 12% LOTION 225 GM BOTTLE TP SCH (10:11)
[2017-11-22] MEDS: NICOTINE POLACRILEX 2 MG GUM BUC PRN (14:04)
[2017-11-22] MEDS: THIAMINE HCL 100 MG TABLET (FP) PO SCH (21:17)
[2017-11-22] MEDS: ARIPiprazole 5 MG TABLET (FP) PO SCH (21:17)
[2017-11-22] MEDS: DOCUSATE SODIUM 100 MG CAPSULE (FP) PO SCH (21:17)
[2017-11-23] MEDS ORDERED: METHADONE HCL 10 MG TABLET ONE (05:30)
[2017-11-23] MEDS ORDERED: METHADONE HCL 40 MG DISPERSABLE TABLET ONE (05:30)
[2017-11-23] MEDS: busPIRone HCL 10 MG TABLET (FP) PO SCH ×3 (06:06→21:21)
[2017-11-23] MEDS: METHADONE 120 MG, METHADONE 30 MG PO SCH (06:06)
[2017-11-23] MEDS: CYCLOBENZAPRINE HCL 10 MG TABLET (FP) PO SCH ×3 (06:07→21:21)
[2017-11-23] MEDS: AMMONIUM LACTATE 12% LOTION 225 GM BOTTLE TP SCH (09:55)
[2017-11-23] MEDS: TOLNAFTATE 1% CREAM 15 GM TUBE TP SCH ×2 (09:56→21:22)
[2017-11-23] MEDS: NICOTINE 21 MG/24 HOURS TOPICAL PATCH TD SCH (09:56)
[2017-11-23] MEDS: buPROPion HCL 100 MG TABLET PO SCH (09:56)
[2017-11-23] MEDS: RANITIDINE HCL 150 MG TABLET (FP) PO SCH (09:56)
[2017-11-23] MEDS: ALBUTEROL SO4 18 GM HFA INHALER IH PRN (09:56)
[2017-11-23] MEDS: PRENATAL VITAMINS W/ FOLIC ACID TABLET (FP) PO SCH (09:56)
[2017-11-23] MEDS: NICOTINE POLACRILEX 2 MG GUM BUC PRN (14:19)
[2017-11-23] MEDS: DOCUSATE SODIUM 100 MG CAPSULE (FP) PO SCH (21:21)
[2017-11-23] MEDS: ARIPiprazole 5 MG TABLET (FP) PO SCH (21:21)
[2017-11-23] MEDS: THIAMINE HCL 100 MG TABLET (FP) PO SCH (21:21)
[2017-11-24] MEDS ORDERED: METHADONE HCL 10 MG TABLET ONE (03:13)
[2017-11-24] MEDS ORDERED: METHADONE HCL 40 MG DISPERSABLE TABLET ONE (03:13)
[2017-11-24] MEDS: CYCLOBENZAPRINE HCL 10 MG TABLET (FP) PO SCH ×3 (06:10→21:21)
[2017-11-24] MEDS: busPIRone HCL 10 MG TABLET (FP) PO SCH ×3 (06:10→21:20)
[2017-11-24] MEDS: METHADONE 120 MG, METHADONE 30 MG PO SCH (06:10)
[2017-11-24] MEDS: NICOTINE 21 MG/24 HOURS TOPICAL PATCH TD SCH (10:17)
[2017-11-24] MEDS: PRENATAL VITAMINS W/ FOLIC ACID TABLET (FP) PO SCH (10:17)
[2017-11-24] MEDS: buPROPion HCL 100 MG TABLET PO SCH (10:17)
[2017-11-24] MEDS: TOLNAFTATE 1% CREAM 15 GM TUBE TP SCH ×2 (10:18→21:21)
[2017-11-24] MEDS: IBUPROFEN 400 MG TABLET (FP) PO PRN (10:18)
[2017-11-24] MEDS: RANITIDINE HCL 150 MG TABLET (FP) PO SCH (10:18)
[2017-11-24] MEDS: AMMONIUM LACTATE 12% LOTION 225 GM BOTTLE TP SCH (10:19)
[2017-11-24] MEDS: NICOTINE POLACRILEX 2 MG GUM BUC PRN (13:06)
[2017-11-24] MEDS: DOCUSATE SODIUM 100 MG CAPSULE (FP) PO SCH (21:20)
[2017-11-24] MEDS: ARIPiprazole 5 MG TABLET (FP) PO SCH (21:21)
[2017-11-24] MEDS: THIAMINE HCL 100 MG TABLET (FP) PO SCH (21:21)
[2017-11-25] MEDS ORDERED: METHADONE HCL 10 MG TABLET ONE (03:22)
[2017-11-25] MEDS ORDERED: METHADONE HCL 40 MG DISPERSABLE TABLET ONE (03:23)
[2017-11-25] MEDS: busPIRone HCL 10 MG TABLET (FP) PO SCH (06:01)
[2017-11-25] MEDS: METHADONE 120 MG, METHADONE 30 MG PO SCH (06:01)
[2017-11-25] MEDS: CYCLOBENZAPRINE HCL 10 MG TABLET (FP) PO SCH (06:02)
[2017-11-25 06:42] VITALS: BP 115/78; PULSE 69; TEMP 98.1
[2017-11-25] MEDS: NICOTINE POLACRILEX 2 MG GUM BUC PRN (06:47)
[2017-11-25] MEDS: PRENATAL VITAMINS W/ FOLIC ACID TABLET (FP) PO SCH (09:52)
[2017-11-25] MEDS: AMMONIUM LACTATE 12% LOTION 225 GM BOTTLE TP SCH (09:53)
[2017-11-25] MEDS: RANITIDINE HCL 150 MG TABLET (FP) PO SCH (09:53)
[2017-11-25] MEDS: TOLNAFTATE 1% CREAM 15 GM TUBE TP SCH (09:53)
[2017-11-25] MEDS: buPROPion HCL 100 MG TABLET PO SCH (09:53)
[2017-11-25] MEDS: NICOTINE 21 MG/24 HOURS TOPICAL PATCH TD SCH (09:53)
--- NOTE | 2017-11-25 10:52 | PN ---
Psychiatric Progress Note Vital Signs: Vital Signs Period Temp Pulse Resp BP Sys/Moran Pulse Ox Last 24 Hr 98.1 F 69 18-18 115/78 Date of Session: 11/25/17 Chief Complaint:: discharge visit HPI: Patient has addressed alcoho, cannabis, seadtive-hypnotic, nicotine , opioid dependence comorbid MDD and TUNG. ROS: Asthma, lower back pain, COPD medically managed. Current Medications: Active Medications Generic Name Dose Route Start Last Admin Trade Name Freq PRN Reason Stop Dose Admin Acetaminophen 650 mg 11/14/17 14:53 Tylenol - PO Q4H PRN FEVER Al Hydroxide/Mg Hydroxide 30 ml 11/14/17 14:53 11/17/17 06:43 Mylanta Oral Suspension - PO 30 ml Q6H PRN Administration DYSPEPSIA Albuterol Sulfate 2 puff 11/14/17 14:56 11/23/17 09:56 Ventolin Hfa Inhaler - IH 2 puff Q4H PRN Administration SHORT OF BREATH/WHEEZING Aripiprazole 5 mg 11/14/17 22:00 11/24/17 21:21 Abilify PO 5 mg HS RUBY Administration Bupropion HCl 200 mg 11/15/17 10:00 11/25/17 09:53 Wellbutrin - PO 200 mg DAILY RUBY Administration Buspirone HCl 10 mg 11/14/17 22:00 11/25/17 06:01 Buspar - PO 10 mg TID RUBY Administration Cyclobenzaprine HCl 10 mg 11/17/17 14:00 11/25/17 06:02 Flexeril - PO 10 mg TID RUBY Administration Docusate Sodium 300 mg 11/17/17 22:00 11/24/17 21:20 Colace - PO 300 mg HS RUBY Administration Eucalyptus/Menthol/Phenol/Sorbitol 1 each 11/14/17 14:53 Cepastat Lozenge - MM Q4H PRN SORE THROAT Guaifenesin 10 ml 11/14/17 14:53 Robitussin Dm - PO Q6H PRN COUGH Hydroxyzine Pamoate 50 mg 11/14/17 14:53 11/15/17 21:43 Vistaril - PO 50 mg Q4H PRN Administration AGITATION Ibuprofen 400 mg 11/14/17 14:53 11/24/17 10:18 Motrin - PO 400 mg Q6H PRN Administration Pain Level 4-6 Lactic Acid 1 applic 11/18/17 15:45 11/25/17 09:53 Lac-Hydrin 12 TP Not Given DAILY RUBY Loperamide HCl 4 mg 11/14/17 14:53 Imodium - PO Q6H PRN DIARRHEA Magnesium Citrate 300 ml 11/14/17 14:53 Citroma - PO Q48H PRN CONSTIPATION Magnesium Hydroxide 30 ml 11/14/17 14:53 Milk Of Magnesia - PO DAILY PRN CONSTIPATION Methadone HCl 120 mg/ 150 mg 11/15/17 06:00 11/25/17 06:01 Methadone HCl 30 mg PO 150 mg DAILY@0600 RUBY Administration Nicotine 21 mg 11/14/17 15:30 11/25/17 09:53 Nicoderm Patch - TD Not Given DAILY RUBY Nicotine Polacrilex 2 mg 11/14/17 14:53 11/25/17 06:47 Nicorette Gum - BUC 2 mg Q2H PRN Administration NICOTINE REPLACEMENT RX Multivit/Folic Acid/Iron 1 tab 11/15/17 10:00 11/25/17 09:52 Vitamins (Sjr) - PO 1 tab DAILY RUBY Administration Pseudoephedrine/Triprolidine 1 combo 11/14/17 14:53 Actifed - PO TID PRN NASAL CONGESTION Ranitidine HCl 150 mg 11/15/17 10:00 11/25/17 09:53 Zantac - PO 150 mg DAILY RUBY Administration Thiamine HCl 100 mg 11/14/17 22:00 11/24/17 21:21 Vitamin B1 - PO 100 mg HS RUBY Administration Tolnaftate 1 applic 11/17/17 14:05 11/25/17 09:53 Tinactin 1% Cream - TP Not Given BID [facility] Current Side Effect: No Lab tests ordered: No Lab tests reviewed: Yes Provider note:: Patient requested to de discharge today, he completed 11 days of rehabilitation treatment and met his short term gaols, will continue to address his issues at his [facility] program. He reports he feels better, verbalized understanding the negative consequenses of his addiction and motivated to continue maintain abstinence. Patient reports that he does not need any scripts to be send to the pharmacy since he has plenty of medications at home. Patient was encouraged to take medications as directed and f/u with his psychiatrist at [facility], stable for discharge today. Total face to face time:: 20 Mental Status Exam - Mental Status Exam Alert and Oriented to: Time, Place, Person Cognitive Function: Good Patient Appearance: Well Groomed Mood: Hopeful Affect: Appropriate, Mood Congruent Patient Behavior: Appropriate, Cooperative Speech Pattern: Clear, Appropriate Voice Loudness: Normal Thought Process: Intact, Goal Oriented Thought Disorder: Not Present Hallucinations: Denies Suicidal Ideation: Denies Homicidal Ideation: Denies Insight/Judgement: Fair Sleep: Fair Appetite: Fair Muscle strength/Tone: Normal Gait/Station: Normal Psychiatric Treatment Plan - Problem List (1) Benzodiazepine dependence Current Visit: Yes (2) MDD (major depressive disorder) Current Visit: Yes (3) Alcohol dependence Current Visit: No (4) Marihuana dependence Current Visit: No (5) Nicotine dependence Current Visit: No Qualifiers: Nicotine product type: cigarettes Substance use status: in withdrawal Qualified Code(s): F17.213 - Nicotine dependence, cigarettes, with withdrawal (6) Opioid dependence on agonist therapy Current Visit: No (7) Blindness of left eye Current Visit: No (8) TUNG (generalized anxiety disorder) Current Visit: No Comment: Self-report.On medications.
== END 2017-11-25 11:15 | disposition home or self-care (01) | DRG 772 ==
LOC: YASAS 12:22 → Y5N 12:23
PROVIDERS: ADMIT Psychiatry & Neurology Psychiatry; ATTEND Psychiatry & Neurology Psychiatry
PROC: HZ42ZZZ Group Counseling for Substance Abuse Treatment, Cognitive-Behavioral (ICD-10-PCS; principal; 2017-11-14)
DX: F10.20 Alcohol dependence, uncomplicated (principal); F11.20 Opioid dependence, uncomplicated; F13.20 Sedative, hypnotic or anxiolytic dependence, uncomplicated; F12.20 Cannabis dependence, uncomplicated; F17.213 Nicotine dependence, cigarettes, with withdrawal; F33.9 Major depressive disorder, recurrent, unspecified; F41.1 Generalized anxiety disorder; B35.3 Tinea pedis; H54.40 Blindness, one eye, unspecified eye; Z59.0 Homelessness